=== PATIENT | female | born 1935 | race African-American/Black ===

== ENCOUNTER 2022-06-29 11:59 | Emergency (ER) | payer MEDICARE, SELFPAY ==
[2022-06-29] VITALS (20 sets, daily range): BP systolic 179–214; BP diastolic 62–73; PULSE 55–84; RESP 15–30; TEMP 36.3; O2SAT 94–100
--- NOTE | ~2022-06-29 | CT_ITS ---
EXAMINATION: CTA chest PE protocol DATE: 06/29/2022 16:17 INDICATION: Shortness of breath TECHNIQUE: Computed tomography angiography (CTA) of the chest was performed with 100 mL Omnipaque-350 intravenous contrast timed to evaluate the pulmonary arteries. Coronal maximum intensity projection 3D-reconstructions were created by the technologist. The dose-length product (DLP) was 552.20 mGy-cm. Automated exposure control and iterative reconstruction technique were employed. COMPARISON: None. FINDINGS: The pulmonary arteries are well-opacified. No pulmonary embolism is identified. There are s mall pleural effusions, right greater than left. There is dependent atelectasis. No pneumothorax is i dentified. Cardiomegaly is noted. There are are mildly enlarged mediastinal lymph nodes, likely react miko. There is severe thoracic spondylosis. Cysts of the partially visualized right kidney measure up to 4.1 cm. The gallbladder is surgically absent. IMPRESSION: 1. No pulmonary embolus. 2. Small pleural effusions, right greater than left. 3. Cardiomegaly. 4. Mild atelectasis. Reviewed, dictated and finalized at location A.
--- NOTE | ~2022-06-29 | XR_ITS ---
XR chest 2V 06/29/2022 12:54 Indication: Shortness of breath. History of asthma. Procedure: 2 view chest Comparison: No prior studies for comparison. Findings: Cardiomegaly. There is bibasilar airspace disease which may represent atelectasis and/or pn eumonia. Small pleural effusions. No acute osseous abnormality. There is atherosclerosis of the aorta . Impression: 1: Bibasilar airspace disease may represent atelectasis and/or pneumonia. 2: Cardiomegaly. Reviewed, dictated and finalized at location B. Impression: 1: Bibasilar airspace disease may represent atelectasis and/or pneumonia. 2: Cardiomegaly.
--- NOTE | 2022-06-29 12:09 | ECG_ITS ---
Measurements Intervals [place] Rate: 61 P: 61 NE: 142 QRS: -9 QRSD: 129 T: 121 QT: 428 QTc: 433 Interpretive Statements SINUS RHYTHM ATRIAL PREMATURE COMPLEXES LEFT BUNDLE BRANCH BLOCK ABNORMAL ECG NO PREVIOUS ECG AVAILABLE FOR COMPARISON Electronically Signed On 06-29-2022 13:32:58 CDT by Dougie Millard D.O.
--- NOTE | 2022-06-29 12:42 | ED.SOB ---
HPI - SOB/Dyspnea General Chief Complaint: Shortness of Breath/Dyspnea Stated Complaint: sob, not eating Time Seen by Provider: 06/29/22 12:40 Source: family and RN notes reviewed Mode of arrival: ambulatory Limitations: no limitations History of Present Illness HPI Narrative: 86 years old -Sudanese female brought to the emergency room by private car with her daughter complaining of shortness of breath for the last 7 days. Patient lives with her daughter. She denies any fever, chills, nausea, vomiting, diarrhea, constipation, or chest pain. History of asthma, diabetes, hypertension, CHF, dementia. Patient does not take oxygen at home, currently on Plavix. History of right foot surgery 2 months ago. Patient normally goes to [facility] Later patient's granddaughter came to the emergency room and told me that patient used to be on Lasix probably 60 mg daily patient did not take it since, unknown reason. Review of Systems Review of Systems: All systems reviewed & are unremarkable except as noted in HPI and below Exam Narrative: General appearance: Well-developed, well-nourished Skin: Normal color, trace edema bilaterally of the lower extremities Head: Normocephalic, nontraumatic Eyes: Clear conjunctiva ENT: Oropharynx normal, ears normal, nose normal Neck: Supple, nontender Chest and respiratory: Airway patent, no respiratory distress, no accessory muscle use Heart: Regular rate/rhythm Abdomen: Soft, nontender, no organomegaly, quiet bowel sounds Vascular: Normal peripheral pulses, normal capillary refill. Musculoskeletal: Normal range of motion, nontender back Neurologic: Alert and oriented to her name only Course Reevaluation(s) Reevaluation #1: Patient feeling okay as long as laying down in bed. The daughter and granddaughter declined the possibility of hospitalization and would like to take patient home with a prescription of Lasix. Patient blood pressure is elevated, did not take her medication today. Lasix 80 mg IV, Nitropaste 1 g topically used prior to discharge. Date: 06/29/22 Time: 17:20 Vital Signs Vital signs: Vital Signs Temperature 36.3 C L 06/29/22 12:05 Pulse Rate 72 06/29/22 12:05 Respiratory Rate 18 06/29/22 12:05 Blood Pressure 189/62 H 06/29/22 12:05 Pulse Oximetry 98 06/29/22 12:05 Temperature 36.3 C L 06/29/22 12:05 Pulse Rate 84 06/29/22 16:45 Respiratory Rate 26 H 06/29/22 16:45 Blood Pressure 179/73 H 06/29/22 16:24 Pulse Oximetry 100 06/29/22 16:45 MDM - SOB/Dyspnea Differential Diagnosis Differential diagnosis: Likely acute exacerbation of chronic obstructive airways disease, congestive heart failure, community acquired pneumonia and pulmonary embolism Lab Data Result diagrams: 06/29/22 12:23 Labs: Lab Results 06/29/22 06/29/22 06/29/22 Range/Units 12:23 12:23 13:31 WBC 7.2 (4.5-10.0) K/mm3 RBC 4.46 (4.2-5.4) M/mm3 Hgb 12.7 (12.0-15.0) g/dL Hct 41.2 (37.0-47.0) % MCV 92.4 (80-100) fl MCH 28.5 (26-34) pg MCHC 30.8 L (32-36) g/dl RDW 14.8 H (11.5-14.5) % Plt Count 248 (150-375) k/mm3 MPV 12.6 H (7.4-10.4) fl Immature Gran % (Auto) 0.3 (0-0.5) % Neut % (Auto) 49.1 (45.5-73.1) % Lymph % (Auto) 37.8 (18.3-44.2) % [place] % (Auto) 6.5 (2.6-8.5) % Eos % (Auto) 5.7 H (0-4.4) % Baso % (Auto) 0.6 (0.2-1.2) % Lymph # (Auto) 2.74 (0.9-3.2) K/mm3 [place] # (Auto) 0.5 (0.1-0.6) K/mm3 Eos # (Auto) 0.4 H (0-0.3) K/mm3 Baso # (Auto) 0.0 (0.0-0.1) K/mm3 Abs Immat Gran (auto) 0.02 (0.00-0.031) K/mm3 Absolute Neuts (auto) 3.6 (1.3-6.7) K/mm3 Absolute Nuclea
[2022-06-29 13:20] LABS: Alanine Aminotransferase 12 U/L (6-35); Albumin Level 3.5 g/dL (3.5-5.1); Alkaline Phosphatase 78 U/L (38-126); Anion Gap 12 mmol/L (8-16); Aspartate Amino Transferase 23 U/L (14-36); Bilirubin,Total 0.8 mg/dL (0.2-1.3); Blood Urea Nitrogen 12 mg/dL (7-17); Carbon Dioxide 25 mmol/L (22-30); Chloride 106 mmol/L (98-107); Estimated Glomerular Filt Rate 47; Glucose 93 mg/dL (65-110); Potassium 4.5 mmol/L (3.4-5.0); Sodium 143 mmol/L (137-145)
[2022-06-29 13:21] LABS: Basophils Percent Auto 0.6 % (0.2-1.2); Eosinophils Absolute Auto 0.4 K/mm3 (0-0.3); Eosinophils Percent Auto 5.7 % (0-4.4); Hematocrit 41.2 % (37.0-47.0); Hemoglobin 12.7 g/dL (12.0-15.0); Immature Granulocyte Absolute 0.02 K/mm3 (0.00-0.031); Immature Granulocyte Percent A 0.3 % (0-0.5); Lymphocytes Absolute Auto 2.74 K/mm3 (0.9-3.2); Lymphocytes Percent Auto 37.8 % (18.3-44.2); Mean Corpuscular HGB Conc 30.8 g/dl (32-36); Mean Corpuscular Hemoglobin 28.5 pg (26-34); Mean Corpuscular Volume 92.4 fl (80-100); Mean Platelet Volume 12.6 fl (7.4-10.4); Monocytes Absolute Auto 0.5 K/mm3 (0.1-0.6); Monocytes Percent Auto 6.5 % (2.6-8.5); Neutrophils Absolute Auto 3.6 K/mm3 (1.3-6.7); Neutrophils Percent Auto 49.1 % (45.5-73.1); Platelet Count Result 248 k/mm3 (150-375); Red Blood Count 4.46 M/mm3 (4.2-5.4); Red Cell Distribution Width 14.8 % (11.5-14.5); White Blood Count 7.2 K/mm3 (4.5-10.0)
[2022-06-29 13:37] LABS: Base Excess ABG -0.9 mEq/l (+/-2.0); HCO3 ABG 23.3 mEq/l (22.0-26.0); Oxygen Saturation ABG 94.7 % (95.0-100.0); PCO2 ABG 37.4 mmHg (35.0-45.0); PO2 ABG 71.9 mmHg (80.0-100.0); pH ABG 7.413 (7.350-7.450)
[2022-06-29 13:38] LABS: NT Pro B Type Natriuretic Pept 6040 pg/mL (5-100); Troponin I 0.013 ng/mL (0.000-0.034)
[2022-06-29 13:38] LABS: Oxygen Content ABG 17.5 %vol (16.0-22.0); Total Hemoglobin 13.3 g/dL (12.0-18.0)
[2022-06-29 13:40] LABS: Oxyhemoglobin 93.2 % THb (90.0-100.0)
[2022-06-29 13:41] LABS: Device ROOM AIR; Modified Allen's Test Pass; PO2 FiO2 Ratio Arterial Blood 3.42 %; Site Drawn RIGHT RADIAL
[2022-06-29 13:44] LABS: INR 1.1; Prothrombin Time 14.1 Seconds (11.1-14.7)
[2022-06-29 13:45] LABS: Partial Thromboplastin Time 30.9 SECONDS (22.3-36.8)
[2022-06-29 13:59] LABS: D Dimer 1.89 ug/mL (<0.48)
[2022-06-29 15:01] LABS: SARS-CoV-2 RNA PCR Negative
[2022-06-29] MEDS: FUROSEMIDE INJ 100 MG/10 ML VIAL 80 MG IV PUSH (17:40)
[2022-06-29] MEDS: NITROGLYCERIN OINTMENT 1 INCH DOSE TRANSDERM (17:41)
--- NOTE | 2022-06-29 18:49 | PC.NURSE ---
Dr. Falk aware of patient hypertensive state. Dr. Falk informed family and database report writer that patient could be discharged in current hypertensive state as long as patient is going to go home and take her home medications. Family agreed and patient discharged by CAL Gallardo per Dr. Falk permission.
== END 2022-06-29 18:51 | disposition home or self-care (01) ==
PROVIDERS: General Practice; Emergency Provider Emergency Medicine; PCP Internal Medicine
DX: I11.0 Hypertensive heart disease with heart failure (principal); I50.9 Heart failure, unspecified; I10 Essential (primary) hypertension; R06.02 Shortness of breath; F03.90 Unspecified dementia, unspecified severity, without behavioral disturbance, psychotic disturbance, mood disturbance, and anxiety; E11.9 Type 2 diabetes mellitus without complications; J45.909 Unspecified asthma, uncomplicated; Z79.02 Long term (current) use of antithrombotics/antiplatelets; Z20.822 Contact with and (suspected) exposure to COVID-19
CPT/HCPCS: 36415; 36600; 71046; 71275; 82805; 85025; 85380; 85610; 85730; 93005; 96374; 99284; A9270; C9803; J1940; Q9967; U0003; U0005

== ENCOUNTER 2025-09-02 09:51 | Outpatient (CLI) | payer MEDICARE, SELFPAY ==
--- OUTSIDE RECORDS SUMMARY | 2025-07-30 07:00 | XMS_ITS ---
Author Organization [facility] Address [address] [facility] [address] [facility] [address] [place] [address] Care Team Providers Care Electric Range Preparer Name Role Phone John Churchill Unavailable [phone] Problems Problem Type SNOMED Code ICD Code Onset Dates Problem Status W/U Status Risk Notes Problem Diabetic renal disease (164825251) Type 2 diabetes mellitus with diabetic chronic kidney disease (E11.22) Active confirmed Encounters Encounter Location Date Provider Diagnosis [place] [facility] [address] [facility] [address] [place] [address] 07/30/2025 John Churchill Chronic kidney disea se, stage 3b N18.32 ; Essential hypertension I10 ; Type 2 diabetes mellitus with hyperglycemia E11.65 ; Heart failure, unspecified I50.9 ; Renal osteodystrophy N25.0 and 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.22 Assessments Encounter Date Diagnosis (ICD Code) Assessment Notes Treatment Notes Treatment Clinical Notes Section Notes 07/30/2025 Chronic kidney disease, stage 3b (ICD-10 - N18.32) 07/30/2025 Essential hypertension (ICD-10 - I10) 07/30/2025 Type 2 diabetes mellitus with hyperglycemia (ICD-10 - E11.65) 07/30/2025 Heart failure, unspecified (ICD-10 - I50.9) 07/30/2025 Renal osteodystrophy (ICD-10 - N25.0) 07/30/2025 Type 2 diabetes mellitus with diabetic chronic kidney disease (ICD-10 - E11.22) Plan Of Treatment Next Appt Details Provider Name:John Zhao , 11/19/2025 01:00:00 PM, [address] [facility], [facility] [address], [place], [address], Progress Notes * NAHUN YODERDOB:1935 ( 89 yo F)Acc No.[id number]:07/30/2025 Progress Notes Patient: C OX, NAHUN Provider: Rivas PIERRE MD, F.Mina.Leila.P, F.A.S.N. :1935 A ge:89 Y S ex:Female Date:07/30/2025 Address:[address] [place] [address] Subjective: * Chief Complaints: * * Medical History: Objective: * Vitals: Assessment: * Assessment: 1. C hronic kidney disease, stage 3b - N18.32 (Primary) 2 . E ssential hypertension - I10 3 . T ype 2 diabetes mellitus with hyperglycemia - E11.65 ? 4 . H eart failure, unspecified - I50.9 5 . R enal osteodystrophy - N25.0 6 . T ype 2 diabetes mellitus with diabetic chronic kidney disease - E11.22 Plan: * Treatment: * Billing Information: * Visit Code: 52097 Office Visit, New Pt., Level 5. * Procedure Codes: * Electronic signature of Massiel Churchill MD on 09/02/2025 at 10:48 AM COPPER TAPPER Sign off status: Pending * Provider: Rivas PIERRE MD, F.Mina.Leila.P, F.A.S.N. Date: Generated for Printing/Faxing/eTransmitting on: 11/03/2024 10:48 AM COPPER TAPPER
--- OUTSIDE RECORDS SUMMARY | 2025-08-11 12:45 | XMS_ITS ---
Author Organization [facility] Address [address] [facility] [address] [facility] [address] [place] [address] Care Team Providers Care Dray Driver Name Role Phone John Churchill Unavailable [phone] REASON FOR VISIT R/S 09/01 Encounters Encounter Location Date Provider Diagnosis [place] [facility] [address] [facility] [address] [place] [address] 08/11/2025 John Churchill Plan Of Treatment Next Appt Details Provider Name:John Churchill , 11/19/2025 01:00:00 PM, [address] [facility], [facility] [address], [place], [address], Progress Notes * NAHUN YODERDOB:1935 ( 89 yo F)Acc No.[id number]:08/11/2025 Progress Notes Patient: NAHUN GRUBER Provider: Rivas PIERRE MD, Soledad.Mina.C.P, F.A.S.N. :1935 A ge:89 Y S ex:Female Date:08/11/2025 Address:[address] [place] [address] Subjective: * Chief Complaints: Objective: Assessment: Plan: * Billing Information: * Visit Code: * Procedure Codes: * Electronic signature of Massiel Churchill MD on 09/02/2025 at 10:48 AM CARD READER Sign off status: Pending * Provider: Rivas PIERRE MD, Soledad.Mina.C.P, F.A.S.N. Date: 10/11/2024 Generated for Printing/Faxing/eTransmitting on: 11/03/2024 10:48 AM CARD READER
--- OUTSIDE RECORDS SUMMARY | 2025-09-01 08:30 | XMS_ITS ---
Author Organization [facility] Address [address] [facility] [address] [facility] [address] [place] [address] Care Team Providers Care Evp Business Development Name Role Phone John Churchill Unavailable [phone] Problems Problem Type SNOMED Code ICD Code Onset Dates Problem Status W/U Status Risk Notes Problem Proteinuria (46415498) Proteinuria, unspecified (R80.9) Active confirmed Problem Osteoarthritis (408746748) Unspecified osteoarthritis, unspecified site (M19.90) Active confirmed Problem Gout (51012473) Gout, unspecified (M10.9) Active confirmed Problem Hyperkalemia (96506592) Hyperkalemia (E87.5) Active confirmed Problem Urinary tract infectious disease (disorder) (87830527) Urinary tract infection, site not specified (N39.0) Active confirmed Encounters Encounter Location Date Provider Diagnosis [place] [facility] [address] [facility] [address] [place] [address] 09/01/2025 John Churchill Chronic kidney disea se, stage 3b N18.32 ; Essential hypertension I10 ; Heart failure, unspecified I50.9 ; Renal osteodystrophy N25.0 ; 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.22 ; Proteinuria, unspecified R80.9 ; Unspecified osteoarthritis, unspecified site M19.90 ; Gout, unspecified M10.9 ; Hyperkalemia E87.5 and Urinary tract infection, site not specified N39.0 Assessments Encounter Date Diagnosis (ICD Code) Assessment Notes Treatment Notes Treatment Clinical Notes Section Notes 09/01/2025 Chronic kidney disease, stage 3b (ICD-10 - N18.32) 09/01/2025 Essential hypertension (ICD-10 - I10) 09/01/2025 Heart failure, unspecified (ICD-10 - I50.9) 09/01/2025 Renal osteodystrophy (ICD-10 - N25.0) 09/01/2025 Type 2 diabetes mellitus with diabetic chronic kidney disease (ICD-10 - E11.22) 09/01/2025 Proteinuria, unspecified (ICD-10 - R80.9) 09/01/2025 Unspecified osteoarthritis, unspecified site (ICD-10 - M19.90) 09/01/2025 Gout, unspecified (ICD-10 - M10.9) 09/01/2025 Hyperkalemia (ICD-10 - E87.5) 09/01/2025 Urinary tract infection, site not specified (ICD-10 - N39.0) Plan Of Treatment Next Appt Details Provider Name:John Zhao , 11/19/2025 01:00:00 PM, [address] [facility], [facility] [address], [place], [address], Progress Notes * BEBA LARADIONNADOB:1935 ( 89 yo F)Acc No.[id number]:09/01/2025 Progress Notes Patient: NAHUN GRUBER Provider: Rivas PIERRE MD, F.A.C.P, F.A.S.N. :1935 A ge:89 Y S ex:Female Date:09/01/2025 Address:[address] [place], [place] [id number] Subjective: * Chief Complaints: Objective: Assessment: * Assessment: 1. C hronic kidney disease, stage 3b - N18.32 (Primary) 2 . E ssential hypertension - I10 3 . H eart failure, unspecified - I50.9 4 . R enal osteodystrophy - N25.0 5 . T ype 2 diabetes mellitus with diabetic chronic kidney disease - E11.22 6 . P roteinuria, unspecified - R80.9 7 . U nspecified osteoarthritis, unspecified site - M19.90 8 . G out, unspecified - M10.9 9 . H yperkalemia - E87.5 1 0. U rinary tract infection, site not specified - N39.0 Plan: * Billing Information: * Visit Code: 89250 Office Visit, Est Pt., Level 4. * Procedure Codes: * Electronic signature of Massiel Churchill MD on 09/02/2025 at 10:48 AM MUD GRINDER Sign off status: Pending * Provider: Rivas PIERRE MD, F.A.C.P, F.A.S.N. Date: 11/02/2024 Generated for Printing/Faxing/eTransmitting on: 11/03/2024 10:48 AM MUD GRINDER
--- NOTE | ~2025-09-02 | NM_ITS ---
EXAMINATION: NM bone scan whole body DATE: 09/02/2025 14:07 INDICATION: Right hip pain TECHNIQUE: 24.0 mCi Tc-99m MDP was administered intravenously. Delayed whole- body scintigrams were obtained. COMPARISON: There are no relevant imaging studies at our institution. FINDINGS: Photopenic defect in the region of the right femoral head suggesting either prior right hip arthroplasty or osteonecrosis. Likely degenerative joint and uptake at the left wrist and acromioclavicular, elbow and knee joints. No other suspicious foci of abnormal bone uptake to suggest acute osseous abnormality or metastatic disease. Mild thoracic dextrocurvature with mild compensatory levocurvature at the thoracolumbar junction. IMPRESSION: 1. Photopenic defect in the region of the right femoral head which could be seen with either arthroplasty or osteonecrosis. Correlate with clinical history and consider radiographs of the right hip and pelvis for further evaluation. Reviewed, dictated and finalized at location A. PATIONAL HEALTH NURSE SUPERVISOR IMPRESSION: 1. Photopenic defect in the region of the right femoral head which could be see n with either arthroplasty or osteonecrosis. Correlate with clinical history an d consider radiographs of the right hip and pelvis for further evaluation.
--- OUTSIDE RECORDS SUMMARY | 2025-09-02 10:49 | XMS_ITS | Clinical Summary ---
Author Organization [facility] Address [address] [place] [address] Care Team Providers Care Mining Professionals Name Role Phone Bandar Macias MD Primary Care Provider [phone] Social History Tobacco Use Types Packs/Day Years Used Date Smoking Tobacco: Never Assessed Comments Unknown Sex and Gender Information Value Date Recorded Sex Assigned at Female 01/11/2025 10:31 AM CDT Legal Sex Female 2:13 PM CDT Gender Identity Not on file Sexual Orientation Not on file Plan of Treatment Health Maintenance Due Date Last Done Comments DTaP, Tdap and Td Vaccines ( 1 - Tdap) 12/02/1954 Pneumococcal Vaccine: 50+ Years (1 of 1 - PCV) 12/02/1985 Zoster Vaccines (1 of 2) 12/02/1985 Annual Medicare Wellness Visit 12/02/2000 RSV Immunization or 60+ Years (1 - 1-dose 75+ series) 12/02/2010 COVID-19 Vaccine (2024-2 6 season) 2025 08/02/2021, 12/19/2020, 11/21/2020 Influenza Adult (#1) 2025 09/17/2023 Hepatitis A Vaccines Aged Out No long er eligible based on patient's age to complete this topic Meningococcal B Vaccine Aged Out No l onger eligible based on patient's age to complete this topic Meningococcal Vaccine Aged Out No javi nara eligible based on patient's age to complete this topic RSV Immunizations Under 20 Months Aged Out No longer eligible b ased on patient's age to complete this topic Insurance [facility] MEDICARE Care Teams Mining Professionals Relationship Specialty Start Date End Date Bandar Macias MD [address] [place] [address] PCP - General INTERNAL MEDICINE 01/13/25
--- OUTSIDE RECORDS SUMMARY | 2025-09-02 10:49 | XMS_ITS | Clinical Summary ---
Author Organization [facility] [employer] Address [address] [facility] [place] [address] Care Team Providers Care Group Leader Semiconductor Processing Name Role Phone Noe De La Cruz MD Primary Care Provider Delia lazo Source Comments [facility] [employer],non-owned Affiliates and Associated Physician Practices is amultiple site organization consisting of ambulatory clinics and hospital sitesin [place], [place], [place] and [place]. This disclosure is being madepursuant to the Care Everywhere program and may not contain all information available regarding this patient. Last updated 18.[facility] [employer] Allergies Active Allergy Reactions Criticality Noted Date Comments Codeine Rash,Itching Medium 05/22/2010 Pt reports no adverse reaction to morphine... Pt has taken morphine before per nurse Erythromycin Rash,Itching Medium 05/22/2010 Medications * Be aware that medications may not be up to date on this document. Alwaysverify current medications with the patient. ALENDRONATE SODIUM PO Take 70 mg by mouth every 7 days. 06/09/2010 Active Escitalopram Oxalate (LEXAPRO PO) Take 10 mg by mouth daily. 06/09/2010 Active SitaGLIPtin-MetF ORMIN HCl (JANUMET PO) Take 50 mg by mouth daily. 06/09/2010 Active Calcium Carbonate-Vitami n D (CALCIUM 500 + D PO) Take 500 mg by mouth daily. 06/09/2010 Active METFORMIN HCL PO Take 1,000 mg by mouth daily with dinner. 06/09/2010 Active Carvedilol, [id number], (CARVEDILOL PO) Take 3.125 mg by mouth 2 times daily. 06/09/2010 Active Atorvastatin Calcium (LIPITOR PO) Take 40 mg by mouth daily. 06/09/2010 Active Montelukast Sodium (SINGULAIR PO) Activ e Olmesartan Medoxomil (BENICAR PO) Take 40 mg by mouth daily. 40-25 mg 06/09/2010 Active ASPIRIN PO Take 325 mg by mouth daily. 06/09/2010 Active Propoxyphene N-APAP (DARVOCET-N 100 PO) Take 100 mg by mouth 3 times daily. 06/09/2010 Active tramadol (ULTRAM) 50 MG tablet Take 50 mg by mouth every 6 hours as needed. Active methocarbamol (ROBAXIN) 500 MG tablet Take 1 Tab by mouth every 8 hours. 40 Tab 1 06/09/2010 Active propoxyphene napsylate-acetam inophen (DARVOCET-N 100) 100-650 MG tablet Take 1 Tab by mouth every 4 hours as needed for Pain. 40 Tab 1 06/09/2010 Active hydrocodone-acet aminophen (VICODIN) 5-500 MG tablet Take 1-2 Tabs by mouth every 6 hours as needed for Pain. 40 Tab 1 06/26/2010 Active Active Problems Problem Noted Date Diagnosed Date Muscle weakness (generalized) 09/06/2010 Status post cervical spinal fusion 06/26/2010 Cervical spondylosis without myelopathy 06/26/20 10 Resolved Problems Problem Noted Date Diagnosed Date Resolved Date Cervical spondylosis 06/09/2010 010 Cervical spondylosis without myelopathy 05/22/2010 06/09/2010 Social History Tobacco Use Types Packs/Day Years Used Date Smoking Tobacco: Former Cigarettes 0 Q uit: 05/31/1971 Alcohol Use Standard Drinks/Week Comments No 0 (1 standard drink = 0.6 oz pur e alcohol) Comments Unknown Sex and Gender Information Value Date Recorded Sex Assigned at Not on file Legal Sex Female 9:13 AM AUTOMOTIVE COLLISION REPAIR INSTRUCTOR Gender Identity Not on file Sexual Orientation Not on file Last Filed Vital Signs Vital Sign Reading Time Taken Comments Blood Pressure 141/63 06/10/2010 7:52 AM CDT Pulse 81 06/10/2010 7:52 AM CDT Temperature 35.8 C (96.5 F) 06/10/2010 7:52 AM CDT Respiratory Rate 20 06/10/2010 7:52 AM CDT Oxygen Saturation 93% 06/10/2010 7:52 AM CDT Inhaled Oxygen Concentration - - Weight 83 kg (183 lb) 06/09/2010 7:52 AM CDT Height 167.6 cm (5' 6) 06/09/2010 7:52 AM CDT Body Mass Index 29.54 06/09/2010 7:52 AM CDT Plan of Treatment Health Maintenance Due Date Last Done Comments BONE DENSITY TESTING 1935 DTAP/TDAP/TD VACCINES (1 - Tdap) 12/02/1954 PNEUMOCOCCAL VACCINE 50+ (1 of 1 - PCV) 12/02/1985 ZOSTER VACCINE (1 of 2) 12/02/1985 Respiratory Syncytial Virus (RSV) Vaccine Pt: or over 60 yrs (1 - 1-dose 75+ series) 12/02/2010 DEPRESSION SCREENING 09/30/2024 COVID-19 VACCINE (2024-2 6 season) 2025 INFLUENZA VACCINE (#1) 2025 HEPATITIS B VACCINE Aged Out No longe r eligible based on patient's age to complete this topic HIB VACCINE Aged Out No longer eligi ble based on patient's age to complete this topic HPV VACCINE Aged Out No longer eligi ble based on patient's age to complete this topic MENINGOCOCCAL (Group B) VACC INE SHARED DECISION-MAKING Aged Out No longer eligibl e based on patient's age to complete this topic MENINGOCOCCAL GROUPS A/C/Y/W VACCINE Aged Out No longer eligible b ased on patient's age to complete this topic Advance Directives * Full Code (Latest Code Status on File) Date Activated Date Inactivated Comments 06/09/2010 2:14 PM 06/11/2010 1:58 AM Care Teams Group Leader Semiconductor Processing Relationship Specialty Start Date End Date Noe De La Cruz MD PCP - General Internal Medicine 09/06/10
--- OUTSIDE RECORDS SUMMARY | 2025-09-02 10:49 | XMS_ITS | Clinical Summary ---
Author Organization [employer] [facility] Address [address] Humphriesn: Epic Prelude ADT [place] [address] Care Team Providers Care Emt Basic Name Role Phone Unavailable Primary Care Provider Unavailabl e Social History Tobacco Use Types Packs/Day Years Used Date Smoking Tobacco: Never Assessed Comments Unknown Sex and Gender Information Value Date Recorded Sex Assigned at Not on file Legal Sex Female 11:32 AM SOFTWARE TESTING SPECIALIST Gender Identity Not on file Sexual Orientation Not on file Plan of Treatment Health Maintenance Due Date Last Done Comments DTAP/TDAP/TD VACCINES (1 - Tdap) 12/02/1954 PNEUMOCOCCAL VACCINE 50+ YEARS (1 of 1 - PCV) 12/02/18 86 ZOSTER VACCINE (1 of 2) 12/02/1985 OSTEOPOROSIS SCREENING 12/02/2000 RSV VACCINE (60+ or ) (1 - 1-dose 75+ series) 12/02/2010 INFLUENZA VACCINE (#1) 2025
--- OUTSIDE RECORDS SUMMARY | 2025-09-02 10:49 | XMS_ITS | Patient Health Record ---
Author Organization [facility] Address [address] [facility] [address] [place] [address] Care Team Providers Care Plaster Die Maker Name Role Phone John Churchill Unavailable [phone] Reason For Referral No Information Problems Problem Type SNOMED Code ICD Code Onset Dates Problem Status W/U Status Risk Notes Problem Diabetic renal disease (420946849) Type 2 diabetes mellitus with diabetic chronic kidney disease (E11.22) Active confirmed Problem Hyperkalemia (35153591) Hyperkalemia (E87.5) Active confirmed Problem Heart failure (68337260) Heart failure, unspecified (I50.9) Active confirmed Problem Gout (81971335) Gout, unspecifie d (M10.9) Active confirmed Problem Osteoarthritis (437129310) Unspecified osteoarthritis, unspecified site (M19.90) Active confirmed Problem Renal osteodystrophy (85685147) Renal osteodystrophy (N25.0) Active confirmed Problem Urinary tract infectious disease (disorder) (23583302) Urinary tract infection, site not specified (N39.0) Active confirmed Problem Proteinuria (78078780) Proteinuria, unspecified (R80.9) Active confirmed Problem Essential hypertension (64663005) Essential hypertension (I10) Active confirmed Problem Chronic kidney disease stage 3B (disorder) (294993432) Chronic kidney disease, stage 3b (N18.32) Active confirmed Encounters Encounter Location Date Provider Diagnosis [facility] [address] [facility] [address] [place] [address] 07/30/2025 John Churchill Chronic kidney disea se, stage 3b N18.32 ; Essential hypertension I10 ; Type 2 diabetes mellitus with hyperglycemia E11.65 ; Heart failure, unspecified I50.9 ; Renal osteodystrophy N25.0 and 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.22 [facility] [address] [facility] [address] [place] [address] 09/01/2025 John Churchill Chronic kidney disea se, [...] disease, stage 3b (ICD-10 - N18.32) 09/01/2025 Chronic kidney disease, stage 3b (ICD-10 - N18.32) 09/01/2025 Essential hypertension (ICD-10 - I10) 07/30/2025 Essential hypertension (ICD-10 - I10) 09/01/2025 Heart failure, unspecified (ICD-10 - I50.9) 07/30/2025 Type 2 diabetes mellitus with hyperglycemia (ICD-10 - E11.65) 07/30/2025 Heart failure, unspecified (ICD-10 - I50.9) 09/01/2025 Renal osteodystrophy (ICD-10 - N25.0) 07/30/2025 Renal osteodystrophy (ICD-10 - N25.0) 09/01/2025 Type 2 diabetes mellitus with diabetic chronic kidney disease (ICD-10 - E11.22) 07/30/2025 Type 2 diabetes mellitus with diabetic chronic kidney disease (ICD-10 - E11.22) 09/01/2025 Proteinuria, unspecified (ICD-10 - R80.9) 09/01/2025 Unspecified osteoarthritis, unspecified site (ICD-10 - M19.90) 09/01/2025 Gout, unspecified (ICD-10 - M10.9) 09/01/2025 Hyperkalemia (ICD-10 - E87.5) 09/01/2025 Urinary tract infection, site not specified (ICD-10 - N39.0) Plan Of Treatment Next Appt Details Provider Name:John Singh , 11/19/2025 01:00:00 PM, [address], [place], [address],
--- OUTSIDE RECORDS SUMMARY | 2025-09-02 10:49 | XMS_ITS | Clinical Summary ---
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 Pt has taken morphine before per nurse Erythromycin Itching,Rash Medium 05/22/2010 Erythromycin Base Unknown 06/19/2023 Medications isosorbide mononitrate ER (IMDUR) 30 mg 24 hr tablet Take 1 tablet (30 mg total) by mouth daily Active dicyclomine (BENTYL) 20 mg tablet Take 1 tablet (20 mg total) by mouth 2 (two) times a day as needed (abdominal cramping) Active furosemide (LASIX) 40 mg tablet Take 1 tablet (40 mg total) by mouth daily Active olmesartan (BENICAR) 20 mg tablet Take 1 tablet (20 mg total) by mouth daily Active acetaminophen (TYLENOL) 325 mg tablet Take 650 mg by mouth every 6 (six) hours as needed for pain Active atorvastatin (LIPITOR) 40 mg tablet Take 1 tablet (40 mg total) by mouth daily Active carvediloL (COREG) 12.5 mg tablet Take 1 tablet (12.5 mg total) by mouth 2 (two) times a day with meals Active clopidogreL (PLAVIX) 75 mg tablet Take 1 tablet (75 mg total) by mouth daily Active mirtazapine (REMERON) 7.5 mg tablet Take 1 tablet (7.5 mg total) by mouth nightly Active albuterol HFA (PROVENTIL HFA,VENTOLIN HFA,PROAIR HFA) 90 mcg/actuation inhaler Inhale 2 puffs every 6 (six) hours as needed for wheezing Active ferrous sulfate 325 mg (65 mg of elemental iron) tablet Take 1 tablet (65 mg of elemental iron total) by mouth daily with breakfast Active ezetimibe (ZETIA) 10 mg tablet Take 1 tablet (10 mg total) by mouth daily Active megestrol (MEGACE) suspension 400 mg/10 mL Take 10 mL (400 mg total) by mouth daily Shake well just before you measure a dose. Measure with a special dose-measuring spoon or medicine cup, not with a regular table spoon. If you do not have a dose-measuring device, ask your pharmacist for one. 5 Active methocarbamoL (ROBAXIN) 500 mg tablet Take 1 tablet (500 mg total) by mouth every 8 (eight) hours as needed for muscle spasms 30 tablet 5 Active budesonide-formo teroL (SYMBICORT) 160-4.5 mcg/actuation inhaler Inhale 2 puffs daily Rinse mouth with water after use. Do not swallow. 1 each 2 5 Active fluticasone propion-salmeter oL (ADVAIR DISKUS) 100-50 mcg/dose diskus inhaler Inhale 1 puff 2 (two) times a day as needed (For shortness of breath) Rinse mouth with water after use. Do not swallow. 1 each 2 5 Active Active Problems Problem Noted Date Diagnosed Date GREGG (obstructive sleep apnea) 08/10/2025 Simple chronic bronchitis 08/10/2025 Psychophysiological insomnia 08/10/2025 Restless legs 08/10/2025 Moderate persistent asthma without complication 08/10/2025 Wheelchair dependent 08/10/2025 Chronic diastolic heart failure 07/14/2025 Acute on chronic heart failu re with preserved ejection fraction (HFpEF) 06/20/2025 Assessment & Plan (06/21/2025 7:25 AM CDT): -Patient's daughter reports that her mother has been experiencing SOB, especially at night waking up to catch her breath (orthopnea?). This was happening even prior to her recent admission. Patient is not in respiratory distress and is on RA. No signs of volume overload. Workup in the ED: hypersensitivity troponin 13 > 12, NT proBNP 1999 (previously 939 two weeks ago), RPP negative. CXR revealed bibasilar streaky opacities, likely atelectasis. EKG was largely unchanged from prior. She received IV Lasix 40 mg x 2. Recent CT chest 06/04/2025 with no significant findings in the lungs. Unclear if there is a component of HF; however, patient is not volume overloaded on exam. No wheezing to suggest COPD. - Telemetry :I have independently reviewed and interpreted telemetry, which showed 2 episodes of desaturations nightly. - Daughters declined sleep medicine referral, given patient's GOC (unlikely to wear CPAP or nightly oxygen). Plan: - Tele and continuous pulse ox, monitor for any nocturnal desaturations/breathing issues - Echo 82% EF, GIDD, mild RV hypokinesis - Daughters' declined Sleep Medicine referral - continue home coreg, imdur - lasix held given CHAPARRITA Assessment & Plan (06/20/2025 10:34 AM CDT): -Patient's daughter reports that her mother has been experiencing SOB, especially at night waking up to catch her breath (orthopnea?). This was happening even prior to her recent admission. Patient is not in respiratory distress and is on RA. No signs of volume overload. Workup in the ED: hypersensitivity troponin 13 > 12, NT proBNP 1999 (previously 939 two weeks ago), RPP negative. CXR revealed bibasilar streaky opacities, likely atelectasis. EKG was largely unchanged from prior. She received IV Lasix 40 mg x 2. Recent CT chest 06/04/2025 with no significant findings in the lungs. Unclear if there is a component of HF; however, patient is not volume overloaded on exam. No wheezing to suggest COPD. - Telemetry :I have independently reviewed and interpreted telemetry, which showed 2 episodes of desaturations nightly. - Daughters declined sleep medicine referral, given patient's GOC (unlikely to wear CPAP or nightly oxygen). Plan: - Tele and continuous pulse ox, monitor for any nocturnal desaturations/breathing issues - Echo 82% EF, GIDD, mild RV hypokinesis - Daughters' declined Sleep Medicine referral - continue home coreg, imdur - lasix held given CHAPARRITA Leukocytosis 06/20/2025 Assessment & Plan (06/21/2025 7:25 AM CDT): Admit WBC 12.5. Patient denies any pain or discomfort, but hx limited by mental status. - UA w/ reflex ordered Assessment & Plan (06/20/2025 10:35 AM CDT): Admit WBC 12.5. Patient denies any pain or discomfort, but hx limited by mental status. - UA w/ reflex ordered Poor appetite 06/19/2025 Assessment & Plan (06/21/2025 7:25 AM CDT): Daughter reports poor oral intake. On megrestol and mirtazapine at home. Likely 2/2 to dementia. - Nutrition consult - continue megestrol and mirtazapine Assessment & Plan (06/20/2025 7:24 AM CDT): Daughter reports poor oral intake. On megrestol and mirtazapine at home. Likely 2/2 to dementia. - Nutrition consult - continue megestrol and mirtazapine Assessment & Plan (06/19/2025 2:18 PM CDT): Daughter reports poor oral intake. On megrestol and mirtazapine at home. Likely 2/2 to dementia. - RD as elsewhere - continue home meds Generalized abdominal pain 06/19/2025 Assessment & Plan (06/21/2025 7:25 AM CDT): Patient complaint of abdominal pain. Exam with normal bowel sounds, soft, non-distended. KUB with normal bowel gas. - continue to monitor Assessment & Plan (06/20/2025 7:24 AM CDT): Patient complaint of abdominal pain. Exam with normal bowel sounds, soft, non-distended. KUB with normal bowel gas. - continue to monitor Assessment & Plan (06/19/2025 2:18 PM CDT): Patient complaint of abdominal pain. Exam with normal bowel sounds, soft, non-distended. KUB with normal bowel gas. - continue to monitor Hyperkalemia 06/18/2025 Assessment & Plan (06/21/2025 12:21 PM CDT): K 6.5> 5.3 after treatment. Likely due to olmesartan and potassium pills. Unclear if she has CHAPARRITA, Cr 1.8, however baseline fluctuates 1.3-1.7. 2 doses of Lokelma given over . Whole blood K within normal. Cr increase to 2.15. Patient having poor oral intake. - kidney ultrasound with no hydronephrosis - 1:1 feeds to encourage oral intake - lasix held - UA w/ reflex - Hold olmesartan and potassium - Low-potassium diet Assessment & Plan (06/20/2025 10:35 AM CDT): K 6.5> 5.3 after treatment. Likely due to olmesartan and potassium pills. Unclear if she has CHAPARRITA, Cr 1.8, however baseline fluctuates 1.3-1.7. 2 doses of Lokelma given over . Whole blood K within normal. Cr increase to 2.04. Patient having poor oral intake. - kidney ultrasound - 1:1 feeds to encourage oral intake - lasix held - UA w/ reflex - Hold olmesartan and potassium - Low-potassium diet Assessment & Plan (06/19/2025 2:18 PM CDT): K 6.5> 5.3 after treatment. Likely due to olmesartan and potassium pills. Unclear if she has CHAPARRITA, Cr 1.8, however baseline fluctuates 1.3-1.7. 2 doses of Lokelma given over . Whole blood K within normal. -Hold olmesartan and potassium -Low-potassium diet -Telemetry Assessment & Plan (06/18/2025 11:12 PM CDT): -K 6.5> 5.3 after treatment. Likely due to olmesartan and potassium pills. Unclear if she has CHAPARRITA, Cr 1.8, however baseline fluctuates 1.3-1.7 -Hold olmesartan and potassium -Low-potassium diet -Lokelma x1 -Tele Chronic kidney disease (CKD), stage 3 06/18/2025 Assessment & Plan (06/21/2025 12:21 PM CDT): K 6.5> 5.3 after treatment. Likely due to olmesartan and potassium pills. Unclear if she has CHAPARRITA, Cr 1.8, however baseline fluctuates 1.3-1.7. 2 doses of Lokelma given over . Whole blood K within normal. Cr increase to 2.15. Patient having poor oral intake. - kidney ultrasound with no hydronephrosis - 1:1 feeds to encourage oral intake - lasix held - UA w/ reflex - Hold olmesartan and potassium - Low-potassium diet Assessment & Plan (06/20/2025 10:35 AM CDT): K 6.5> 5.3 after treatment. Likely due to olmesartan and potassium pills. Unclear if she has CHAPARRITA, Cr 1.8, however baseline fluctuates 1.3-1.7. 2 doses of Lokelma given over . Whole blood K within normal. Cr increase to 2.04. Patient having poor oral intake. - kidney ultrasound - 1:1 feeds to encourage oral intake - lasix held - UA w/ reflex - Hold olmesartan and potassium - Low-potassium diet Assessment & Plan (06/19/2025 2:18 PM CDT): K 6.5> 5.3 after treatment. Likely due to olmesartan and potassium pills. Unclear if she has CHAPARRITA, Cr 1.8, however baseline fluctuates 1.3-1.7. 2 doses of Lokelma given over . Whole blood K within normal. -Hold olmesartan and potassium -Low-potassium diet -Telemetry Assessment & Plan (06/18/2025 11:12 PM CDT): -K 6.5> 5.3 after treatment. Likely due to olmesartan and potassium pills. Unclear if she has CHAPARRITA, Cr 1.8, however baseline fluctuates 1.3-1.7 -Hold olmesartan and potassium -Low-potassium diet -kelmn x1 -Tele SOB (shortness of breath) 06/18/2025 Assessment & Plan (06/21/2025 7:25 AM CDT): -Patient's daughter reports that her mother has been experiencing SOB, especially at night waking up to catch her breath (orthopnea?). This was happening even prior to her recent admission. Patient is not in respiratory distress and is on RA. No signs of volume overload. Workup in the ED: hypersensitivity troponin 13 > 12, NT proBNP 1999 (previously 939 two weeks ago), RPP negative. CXR revealed bibasilar streaky opacities, likely atelectasis. EKG was largely unchanged from prior. She received IV Lasix 40 mg x 2. Recent CT chest 06/04/2025 with no significant findings in the lungs. Unclear if there is a component of HF; however, patient is not volume overloaded on exam. No wheezing to suggest COPD. - Telemetry 06/19-:I have independently reviewed and interpreted telemetry, which showed 2 episodes of desaturations nightly. - Daughters declined sleep medicine referral, given patient's GOC (unlikely to wear CPAP or nightly oxygen). Plan: - Tele and continuous pulse ox, monitor for any nocturnal desaturations/breathing issues - Echo 82% EF, GIDD, mild RV hypokinesis - Daughters' declined Sleep Medicine referral - continue home coreg, imdur - lasix held given CHAPARRITA Assessment & Plan (06/20/2025 10:34 AM CDT): -Patient's daughter reports that her mother has been experiencing SOB, especially at night waking up to catch her breath (orthopnea?). This was happening even prior to her recent admission. Patient is not in respiratory distress and is on RA. No signs of volume overload. Workup in the ED: hypersensitivity troponin 13 > 12, NT proBNP 2000 (previously 939 two weeks ago), RPP negative. CXR revealed bibasilar streaky opacities, likely atelectasis. EKG was largely unchanged from prior. She received IV Lasix 40 mg x 2. Recent CT chest 06/04/2025 with no significant findings in the lungs. Unclear if there is a component of HF; however, patient is not volume overloaded on exam. No wheezing to suggest COPD. - Telemetry 06/19-:I have independently reviewed and interpreted telemetry, which showed 2 episodes of desaturations nightly. - Daughters declined sleep medicine referral, given patient's GOC (unlikely to wear CPAP or nightly oxygen). Plan: - Tele and continuous pulse ox, monitor for any nocturnal desaturations/breathing issues - Echo 82% EF, GIDD, mild RV hypokinesis - Daughters' declined Sleep Medicine referral - continue home coreg, imdur - lasix held given CHAPARRITA Assessment & Plan (06/19/2025 2:18 PM CDT): -Patient's daughter reports that her mother has been experiencing SOB, especially at night waking up to catch her breath (orthopnea?). This was happening even prior to her recent admission. Patient is not in respiratory distress and is on RA. No signs of volume overload. Workup in the ED: hypersensitivity troponin 13 > 12, NT proBNP 2000 (previously 939 two weeks ago), RPP negative. CXR revealed bibasilar streaky opacities, likely atelectasis. EKG was largely unchanged from prior. She received IV Lasix 40 mg x 2. Recent CT chest 06/04/2025 with no significant findings in the lungs. Unclear if there is a component of HF; however, patient is not volume overloaded on exam. No wheezing to suggest COPD. - Telemetry 06/19:I have independently reviewed and interpreted telemetry, which showed 2 episodes of desaturations around SpO2 80 around 0500. Plan: - Tele and continuous pulse ox, monitor for any nocturnal desaturations/breathing issues - Echo pending - Daughters' declined Sleep Medicine referral - Continue oral lasix 40 mg Assessment & Plan (06/18/2025 11:13 PM CDT): -Patient's daughter reports that her mother has been experiencing SOB, especially at night waking up to catch her breath (orthopnea?). This was happening even prior to her recent admission. Patient is not in respiratory distress and is on RA. No signs of volume overload. Workup in the ED: hypersensitivity troponin 13 > 12, NT proBNP 2000 (previously 939 two weeks ago), RPP negative. CXR revealed bibasilar streaky opacities, likely atelectasis. EKG was largely unchanged from prior. She received IV Lasix 40 mg x 2. Recent CT chest 06/04/2025 with no significant findings in the lungs. Unclear if there is a component of HF; however, patient is not volume overloaded on exam. No wheezing to suggest COPD. Plan: -Tele and continuous pulse ox, monitor for any nocturnal desaturations/breathing issues -Echo -Continue oral lasix 40 mg HTN (hypertension) 06/18/2025 Assessment & Plan (06/21/2025 7:25 AM CDT): Patient is hypertensive here (issues with high BP at home per daughter) on admission. BP improved in AM. -Continue carvedilol and Imdur -Hold olmesartan due to hyperkalemia. Will assess BP, may need to initiate amlodipine. Assessment & Plan (06/20/2025 7:24 AM CDT): Patient is hypertensive here (issues with high BP at home per daughter) on admission. BP improved in AM. -Continue carvedilol and Imdur -Hold olmesartan due to hyperkalemia. Will assess BP, may need to initiate amlodipine. Assessment & Plan (06/19/2025 2:18 PM CDT): Patient is hypertensive here (issues with high BP at home per daughter) on admission. BP improved in AM. -Continue carvedilol and Imdur -Hold olmesartan due to hyperkalemia. Will assess BP, may need to initiate amlodipine. Assessment & Plan (06/18/2025 11:12 PM CDT): -Patient is hypertensive here (issues with high BP at home per daughter) -Continue carvedilol and Imdur -Hold olmesartan due to hyperkalemia. Will assess BP, may need to initiate amlodipine. CAD (coronary artery disease) 06/18/2025 Assessment & Plan (06/21/2025 7:25 AM CDT): -Continue Plavix and statin Assessment & Plan (06/20/2025 7:24 AM CDT): -Continue Plavix and statin Assessment & Plan (06/19/2025 9:16 AM CDT): -Continue Plavix and statin Assessment & Plan (06/18/2025 11:12 PM CDT): -Continue Plavix and statin T2DM (type 2 diabetes mellitus) 06/18/2025 Assessment & Plan (06/21/2025 7:25 AM CDT): Not taking metformin per daughter, most recent A1c 6.3 in 04/2024. 06/18/2025 7.2. - SSI Assessment & Plan (06/20/2025 10:34 AM CDT): Not taking metformin per daughter, most recent A1c 6.3 in 04/2024. 06/18/2025 7.2. - SSI Assessment & Plan (06/19/2025 2:18 PM CDT): Not taking metformin per daughter, most recent A1c 6.3 in 04/2024 - Add on A1c ordered - SSI Assessment & Plan (06/18/2025 11:12 PM CDT): -Not taking metformin per daughter, most recent A1c 6.3 in 04/2024 -Add on A1c CHAPARRITA (acute kidney injury) 06/05/2025 Assessment & Plan (06/21/2025 12:21 PM CDT): K 6.5> 5.3 after treatment. Likely due to olmesartan and potassium pills. Unclear if she has CHAPARRITA, Cr 1.8, however baseline fluctuates 1.3-1.7. 2 doses of Lokelma given over 06/18-. Whole blood K within normal. Cr increase to 2.15. Patient having poor oral intake. - kidney ultrasound with no hydronephrosis - 1:1 feeds to encourage oral intake - lasix held - UA w/ reflex - Hold olmesartan and potassium - Low-potassium diet Assessment & Plan (06/20/2025 10:35 AM CDT): K 6.5> 5.3 after treatment. Likely due to olmesartan and potassium pills. Unclear if she has CHAPARRITA, Cr 1.8, however baseline fluctuates 1.3-1.7. 2 doses of Lokelma given over . Whole blood K within normal. Cr increase to 2.04. Patient having poor oral intake. - kidney ultrasound - 1:1 feeds to encourage oral intake - lasix held - UA w/ reflex - Hold olmesartan and potassium - Low-potassium diet Cystitis 06/05/2025 Weakness 06/04/2025 Surgery, elective 03/14/2021 Dementia 03/07/2021 Assessment & Plan (06/21/2025 7:25 AM CDT): -AAOx1 (to person) on admission. This is her baseline per daughter.Walks with walker. -PT/OT Assessment & Plan (06/20/2025 10:34 AM CDT): -AAOx1 (to person) on admission. This is her baseline per daughter.Walks with walker. -PT/OT Assessment & Plan (06/19/2025 9:16 AM CDT): -AAOx1 (to person) on admission. This is her baseline per daughter. -PT/OT/nutrition Assessment & Plan (06/18/2025 11:12 PM CDT): -AAOx1 (to person) on admission. This is her baseline per daughter. 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 Hypertension 03/07/2021 Hyperlipidemia 03/07/2021 Rheumatoid arthritis 03/07/2021 Resolved Problems Problem Noted Date Diagnosed Date Resolved Date Calculus of gallbladder with out cholecystitis without obstruction 03/02/2021 03/27/2021 Overview (03/02/2021): Added automatically from request for surgery [id number] Encounters Date Type Department Care Team Description 08/10/2025 3:55 PM COUNTERSINKER - 08/10/2025 11:59 PM COUNTERSINKER Hospital Encounter [facility] [address] [place] [address] GREGG (obstructive sleep apnea); Simple chronic bronchitis (HCC); Psychophysiological insomnia; Restless legs Discharge Disposition: Discharge to home or self care 08/10/2025 3:15 PM COUNTERSINKER Office Visit [facility] Pulmonology [address] [facility] [address] [place] [phone] Markus Webb MD GREGG (obstructive sleep apnea) (Primary Dx); Simple chronic bronchitis (HCC); Psychophysiological insomnia; Restless legs; Moderate persistent asthma without complication; Wheelchair dependent 07/14/2025 1:00 PM CDT Office Visit [facility] Cardiology [address] [phone] Regis Navarro MD Chronic diastolic heart failure (HCC) (Primary Dx) 07/07/2025 SHOP/CHAP Subsequent Outreach [facility] [address] [phone] Tennille Cunningham, RN 07/01/2025 SHOP/CHAP Subsequent Outreach [facility] [address] [phone] Tennille Cunningham, RN 06/25/2025 SHOP/CHAP Subsequent Outreach [facility] [address] [phone] Tennille Cunningham, RN 06/23/2025 Telephone [facility] [address] [place] [phone] Muna Thompson, [facility] 06/22/2025 SHOP/CHAP Initial Outreach [facility] [address] [phone] Tennille Cunningham RN 06/22/2025 SHOP/CHAP Initial Eligibility Review [facility] [address] [place] [phone] Tennille Cunningham RN 06/18/2025 12:25 PM CDT - 06/21/2025 4:10 PM CDT Hospital Encounter [address] [phone] Nicolas Espinosa MD Kapoor, MD Omar Velasquez Shannon Tyisha Natasha, MD Hyperkalemia (Primary Dx); Shortness of breath; CHAPARRITA (acute kidney injury); Failure to thrive in adult Discharge Disposition: Discharge to home or self care 06/04/2025 12:26 PM CDT - 06/09/2025 1:56 [place] [address] Basil Min, Oj Tamayo MD Bondalapati, MD Zelalem Son, Cade Hill MD Weakness (Primary Dx); Cystitis; CHAPARRITA (acute kidney injury) Discharge Disposition: Discharge to home, home health skilled care from Last 3 Months Surgical History Surgery Date Site/Laterality Comments ANGIOPLASTY TOTAL HIP ARTHROPLASTY Right ORIF ANKLE FRACTURE Left VASCULAR SURGERY Right Leg LAPAROSCOPIC CHOLECYSTECTOMY 03/14/2021 Cholelithiasis with moderate chronic cholecystitis Medical History Medical History Date Comments Hypertension Coronary artery disease Congestive heart failure (CHF) (HCC) Peripheral vascular disease Diabetes 1.5, managed as type 2 (HCC) Rheumatoid arthritis (HCC) 03/07/2021 Family History Medical History Relation Name Comments Ovarian cancer Mother Hypertension Son 1 Hypertension Son 2 Cholelithiasis Neg Hx Relation Name Status Comments Mother Son 1 Son 2 Social History Tobacco Use Types Packs/Day Years Used Date Smoking Tobacco: Former Smokeless Tobacco: Never Comments:Trivial use over 50 years ago AUDIT-C Answer Date Recorded Q1: How often do you have a drink containing alc ohol? Never 03/07/2021 Average Number of Drinks Not on file 021 Frequency of Binge Drinking Not on file 04/2021 Social Connection and Isolation Panel Answer Date Recorded In a typical week, how many times do you talk on the phone with family, friends, or neighbors? More than three times a week 06/22/2025 How often do you get togethe r with friends or relatives? More than three times a week 06/22/2025 How often do you attend chur ch or adventism services? Never 06/22/2025 Do you belong to any clubs o r organizations such as yazdanism groups, unions, fraternal or athletic groups, or school groups? No 06/22/2025 How often do you attend meet ings of the clubs or organizations you belong to? Never 06/22/2025 Are you , , di vorced, , never , or living with a partner? 06/22/2025 Overall Financial Resource Strain (CARDIA) Answe r Date Recorded How hard is it for you to pa y for the very basics like food, housing, medical care, and heating? Not very hard 06/22/2025 Hunger Vital Sign Answer Date Recorded Within the past 12 months, y ou worried that your food would run out before you got the money to buy more. Never true 06/22/20 25 Within the past 12 months, t he food you bought just didn't last and you didn't have money to get more. Never true 06/22/2025 PRAPARE - Transportation Answer Date Re corded In the past 12 months, has l ack of transportation kept you from medical appointments or from getting medications? No 06/01 In the past 12 months, has l ack of transportation kept you from meetings, work, or from getting things needed for daily living? No 06/22/2025 Housing Stability Vital Sign Answer Prashanth e Recorded In the last 12 months, was t here a time when you were not able to pay the mortgage or rent on time? No 06/22/2025 In the past 12 months, how m any times have you moved where you were living? 0 06/22/2025 At any time in the past 12 m [facility], were you homeless or living in a prison (including now)? No 06/22/2025 [facility] Utilities Answer Date Recorded In the past 12 months has th [employer], gas, oil, or water [employer] threatened to shut off services in your home? No 06/22/2025 Personal Safety Answer Date Recorded Have you ever been in or are you currently in a harmful physical or emotional relationship or is someone making you feel afraid or unsafe? Denies 06/18/2025 Comments No Sex and Gender Information Value Date Recorded Sex Assigned at Not on file Legal Sex Female 1:42 AM COUNTERSINKER Gender Identity Not on file Sexual Orientation Not on file Occupation Industry Job Start Date Job End Date Not on file Not on file Not on file Not on file Last Filed Vital Signs Vital Sign Reading Time Taken Comments Blood Pressure 164/60 08/10/2025 3:10 PM COUNTERSINKER Pulse 60 08/10/2025 3:10 PM COUNTERSINKER Temperature 36 C (96.8 F) 08/10/2025 3:10 PM COUNTERSINKER Respiratory Rate 18 08/10/2025 3:10 PM COUNTERSINKER Oxygen Saturation 95% 08/10/2025 3:10 PM COUNTERSINKER Inhaled Oxygen Concentration - - Weight 81.6 kg (180 lb) 08/10/2025 3:10 PM COUNTERSINKER Height 165.1 cm (5' 5) 08/10/2025 3:10 PM COUNTERSINKER Body Mass Index 29.95 08/10/2025 3:10 PM COUNTERSINKER Plan of Treatment Health Maintenance Due Date Last Done Comments Albumin Creatinine Ratio, Urine 1935 Depression Screening 1935 Foot Exam 1935 Osteoporosis Screening-Bone Density Scan 1935 Dilated Eye Exam 12/02/1945 DTaP/Tdap/Td Vaccine (1 - Tdap) 12/02/1946 Hepatitis B Screening 12/02/1953 Pneumococcal vaccine 65+ (1 of 2 - PCV) 12/02/1954 Zoster Vaccine (1 of 2) 12/02/1985 Well Visit 65+ 12/02/2000 Covid-19 Vaccine (4 - 2024-2 6 season) 2025 08/02/2021, 12/19/2020, 11/21/2020 Influenza Vaccine (#1) 2025 Hemoglobin A1C 12/17/2025 06/19/2025, 05/31, 03/07/2021 Lipid Panel 06/18/2026 06/18/2025 TSH Level 06/19/2026 06/19/2025, 06/19/2025 eGFR 06/20/2026 06/20/2025, 06/01, 06/19/2025, Additional history exists Fall Risk Assessment 06/21/2026 06/21/2025 Procedures Procedure Name Priority Date/Time Associated Diagnosis Comments XR CHEST PA LATERAL 2 VIEWS Schedule Routine, Read Routine (OP Routine) 08/10/2025 4:20 PM COUNTERSINKER GREGG (obstructive sleep apnea) Simple chronic bronchitis (HCC) Psychophysiologic al insomnia Restless legs POCT GLUCOSE DEVICE Routine 06/21/2025 1 1:55 AM CDT POCT GLUCOSE DEVICE Routine 06/21/2025 7 :40 AM CDT POCT GLUCOSE DEVICE Routine 06/20/2025 1 0:06 PM CDT EGFR Routine 06/20/2025 10:06 PM CDT CBC WITHOUT DIFFERENTIAL Routine 06/20/2025 10:06 PM CDT BASIC METABOLIC PANEL Routine 06/20/2025 10:06 PM CDT US KIDNEY COMPLETE IP Routine 06/20/2025 8: 10 PM CDT POCT GLUCOSE DEVICE Routine 06/20/2025 4 :53 PM CDT POCT GLUCOSE DEVICE Routine 06/20/2025 1 1:36 AM CDT URINALYSIS AND REFLEX TO MICROSCOPIC AND CULTURE Routine 06/20/2025 11:28 AM CDT POCT GLUCOSE DEVICE Routine 06/20/2025 7 :39 AM CDT POCT GLUCOSE DEVICE Routine 06/19/2025 9 :03 PM CDT EGFR Routine 06/19/2025 8:40 PM CDT CBC WITHOUT DIFFERENTIAL Routine 06/19/2025 8:40 PM CDT BASIC METABOLIC PANEL Routine 06/19/2025 8:40 PM CDT POCT GLUCOSE DEVICE Routine 06/19/2025 4 :30 PM CDT TRANSTHORACIC ECHO (TTE) COMPLETE W DOPPLER/CF W CONTRAST Routine 06/19/2025 2:21 PM CDT POTASSIUM, WHOLE BLOOD Routine 06/19/2025 11:51 AM CDT XR ABDOMEN AP 1 VIEW IP Routine 06/19/2025 11:22 AM CDT THYROID FUNCTION CASCADE Routine 06/19/2025 5:56 AM CDT EGFR Routine 06/19/2025 5:56 AM CDT BASIC METABOLIC PANEL Routine 06/19/2025 5:56 AM CDT POTASSIUM LEVEL Timed 06/18/2025 9:10 PM CDT POTASSIUM LEVEL Timed 06/18/2025 5:44 PM CDT POCT GLUCOSE DEVICE Routine 06/18/2025 5 :41 PM CDT ECG 12-LEAD Routine 06/18/2025 4:12 PM CDT PRO B-TYPE NATRIURETIC PEPTIDE STAT 06/18/2025 3:38 PM CDT RESPIRATORY PATHOGEN PANEL STAT 06/18/2025 3:38 PM CDT POCT GLUCOSE DEVICE Routine 06/18/2025 3 :36 PM CDT POCT GLUCOSE DEVICE Routine 06/18/2025 2 :12 PM CDT CRITICAL RESULT CALLBACK CHEMISTRY Timed 06/18/2025 1:47 PM CDT POTASSIUM LEVEL Timed 06/18/2025 1:47 PM CDT TROPONIN I HIGH-SENSITIVITY 2-HOUR Timed 06/18/2025 1:47 PM CDT HEMOGLOBIN A1C STAT 06/18/2025 12:34 PM CDT LIPID PANEL STAT 06/18/2025 12:34 PM CDT EGFR STAT 06/18/2025 12:34 PM CDT CRITICAL RESULT CALLBACK CHEMISTRY STAT 06/18/2025 12:34 PM CDT DIFFERENTIAL AUTO STAT 06/18/2025 12: 34 PM CDT TROPONIN I HIGH-SENSITIVITY SERIES (BASELINE, 2HR, 4HR, 6HR) STAT 06/18/2025 12:34 PM CDT CBC WITH AUTO DIFFERENTIAL STAT 06/18/2025 12:34 PM CDT COMPREHENSIVE METABOLIC PANEL STAT 06/18/2025 12:34 PM CDT XR CHEST 1 VIEW ED 06/18/2025 11:09 AM CDT ECG 12-LEAD STAT 06/18/2025 10:59 AM CDT POCT GLUCOSE DEVICE Routine 06/18/2025 1 0:48 AM CDT HOME O2 EVAL (DESATURATION SCREEN) Routine 06/09/2025 10:12 AM CDT VITAMIN D 25 HYDROXY Routine 06/09/2025 8:44 AM CDT MAGNESIUM Routine 06/09/2025 8:44 AM CDT EGFR Routine 06/08/2025 2:31 AM CDT DIFFERENTIAL AUTO Routine 06/08/2025 2:3 1 AM CDT BASIC METABOLIC PANEL Routine 06/08/2025 2:31 AM CDT CBC WITH AUTO DIFFERENTIAL Routine 06/08/2025 2:31 AM CDT BLOOD CULTURE STAT 06/08/2025 2:31 AM CDT BLOOD CULTURE STAT 06/07/2025 1:26 PM CDT VANCOMYCIN LEVEL RANDOM Timed 06/07/2025 10:47 AM CDT EGFR Routine 06/07/2025 4:40 AM CDT DIFFERENTIAL AUTO Routine 06/07/2025 4:4 0 AM CDT BASIC METABOLIC PANEL Routine 06/07/2025 4:40 AM CDT CBC WITH AUTO DIFFERENTIAL Routine 06/07/2025 4:40 AM CDT EGFR Routine 06/06/2025 5:28 AM CDT DIFFERENTIAL AUTO Routine 06/06/2025 5:2 8 AM CDT BASIC METABOLIC PANEL Routine 06/06/2025 5:28 AM CDT CBC WITH AUTO DIFFERENTIAL Routine 06/06/2025 5:28 AM CDT POCT GLUCOSE DEVICE Routine 06/05/2025 1 2:24 PM CDT POCT GLUCOSE DEVICE Routine 06/05/2025 8 :51 AM CDT EGFR Routine 06/05/2025 6:43 AM CDT DIFFERENTIAL AUTO Routine 06/05/2025 6:4 3 AM CDT BASIC METABOLIC PANEL Routine 06/05/2025 6:43 AM CDT CBC WITH AUTO DIFFERENTIAL Routine 06/05/2025 6:43 AM CDT TROPONIN T HIGH-SENSITIVITY 6-HOUR Timed 06/04/2025 8:54 PM CDT POCT GLUCOSE DEVICE Routine 06/04/2025 8 :39 PM CDT TROPONIN T HIGH-SENSITIVITY 4-HR Timed 06/04/2025 5:23 PM CDT SEPSIS LACTATE WITH REFLEX STAT 06/04/2025 4:14 PM CDT BLOOD CULTURE STAT 06/04/2025 4:[address] CHEST ABDOMEN PELVIS WO CONTRAST ED 06/04/2025 4:[address] HEAD WO CONTRAST ED 06/04/2025 4 :06 PM CDT BLOOD CULTURE STAT 06/04/2025 2:54 PM CDT URINALYSIS, MICROSCOPIC ONLY STAT 06/04/2025 1:25 PM CDT URINE CULTURE STAT 06/04/2025 1:25 PM CDT URINALYSIS AND REFLEX TO MICROSCOPIC AND CULTURE STAT 06/04/2025 1:25 PM CDT XR CHEST 1 VIEW ED 06/04/2025 1:02 PM CDT TROPONIN T HIGH-SENSITIVITY SERIES (BASELINE, 2HR, 4HR, 6HR) STAT 06/04/2025 12:56 PM CDT PRO B-TYPE NATRIURETIC PEPTIDE STAT 06/04/2025 12:56 PM CDT EGFR STAT 06/04/2025 12:56 PM CDT MAGNESIUM STAT 06/04/2025 12:56 PM CDT DIFFERENTIAL AUTO STAT 06/04/2025 12: 56 PM CDT COMPREHENSIVE METABOLIC PANEL STAT 06/04/2025 12:56 PM CDT CBC WITH AUTO DIFFERENTIAL STAT 06/04/2025 12:56 PM CDT INFLUENZA A/B, RSV, AND COVID-19 PCR STAT 06/04/2025 12:56 PM CDT POCT GLUCOSE DEVICE Routine 06/04/2025 1 2:53 PM CDT ECG 12-LEAD STAT 06/04/2025 12:33 PM CDT from Last 3 Months Results * XR Chest Pa Lateral 2 Views (08/10/2025 4:20 PM COUNTERSINKER) Anatomical Region Laterality Modality Body, Chest N/A Computed Radiogr aphy 08/11/2025 11:2 3 AM COUNTERSINKER Impressions 08/11/2025 11:23 AM COUNTERSINKER No radiographic evidence of an acute cardiopulmonary abnormality. Electronically signed by: Cortes Mercado M.D. Narrative 08/11/2025 11:23 AM COUNTERSINKER EXAMINATION: XR CHEST PA LATERAL 2 VIEWS. TECHNIQUE: Two radiographic views of the chest. HISTORY: Obstructive sleep apnea (adult) (pediatric) COMPARISON: 06/17/2025 06/04/2025 04/07/2025 FINDINGS: Support devices: None. Lungs: Streaky opacities of the bilateral lung bases likely atelectasis/scarring. No focal consolidation, pneumothorax, or pleural effusion. Heart/Mediastinum: Normal heart size. Bones/Soft Tissues: ACDF hardware. Moderate bilateral glenohumeral osteoarthrosis. No acute displaced fracture. Multilevel degenerative changes of the visualized spine. Vascular calcifications. Right upper quadrant surgical clips. Procedure Note Cortes Mercado MD - 08/11/2025 EXAMINATION: XR CHEST PA LATERAL 2 VIEWS. TECHNIQUE: Two radiographic views of the chest. HISTORY: Obstructive sleep apnea (adult) (pediatric) COMPARISON: 06/17/2025 06/04/2025 04/07/2025 FINDINGS: Support devices: None. Lungs: Streaky opacities of the bilateral lung bases likely atelectasis/scarring. No focal consolidation, pneumothorax, or pleural effusion. Heart/Mediastinum: Normal heart size. Bones/Soft Tissues: ACDF hardware. Moderate bilateral glenohumeral osteoarthrosis. No acute displaced fracture. Multilevel degenerative changes of the visualized spine. Vascular calcifications. Right upper quadrant surgical clips. IMPRESSION: No radiographic evidence of an acute cardiopulmonary abnormality. Electronically signed by: Cortes Mercado M.D. Markus Webb MD IMG XR PROCEDURES Final Res ult * POCT glucose (06/21/2025 11:55 AM CDT) Glucose, POC 186 70 - 199 mg/dL Blood 06/21/2025 11:5 5 AM CDT 06/21/2025 11:55 AM CDT us Ashlee Nelson MD LAB POCT ORDERA BLES - DEVICE Final Result [facility] Department of Laboratories [place], [place] [id number] * POCT glucose (06/21/2025 7:40 AM CDT) Glucose, POC 116 70 - 199 mg/dL Blood 06/21/2025 7:40 AM CDT 06/21/2025 7:40 AM CDT Ashlee Gardenia Elysia Nelson MD LAB POCT ORDERA BLES - DEVICE Final Result Performing Organization Address City/[facility]/ZIP Co de Phone Number [facility] [place] [address] * (ABNORMAL) eGFR (06/20/2025 10:06 PM CDT) eGFR 21(L) >=60 mL/min/1. 73 m2 Comment: Interpretive Data Reference Interval Normal >/= 90 mL/min/1.73m2 Mildly decreased* 60 - 89 mL/min/1.73m2 Mildly to moderately decreased 45 - 59 mL/min/1.73m2 Moderately to severely decreased 30 - 44 mL/min/1.73m2 Severely decreased 15 - 29 mL/min/1.73m2 Kidney Failure < 15 mL/min/1.73m2 *Relative to young adult level Estimated glomerular filtration rate is determined by the 2020 CKD-EPI equation recommended by the National Kidney Foundation (A Unifying Approach to GFR Estimation: Recommendations of the NKF-ASK Task Force on Reassessing the Inclusion of Race in Diagnosing Kidney Disease, JASN 2020). The CKD-EPI equation should not be used for patients with unstable renal function and has not been validated in children and those over 70. Current interpretive data was last reviewed 2021. Blood 06/20/2025 10:0 6 PM CDT 06/20/2025 11:31 PM CDT Narcisa Horan MD LAB BLOOD ORDERABLES Final Result [facility] [place] [address] * POCT glucose (06/20/2025 10:06 PM CDT) Glucose, POC 191 70 - 199 mg/dL Blood 06/20/2025 10:0 6 PM CDT 06/20/2025 10:06 PM CDT Ashlee Nelson MD LAB POCT ORDERA BLES - DEVICE Final Result Performing Organization Address [facility]/ZIP Co de Phone Number [facility] Department [place] [address] * (ABNORMAL) CBC without differential (06/20/2025 10:06 PM CDT) [facility] WBC 9.98(H) 3.80 - 9.90 K/cumm Hgb 11.6(L) 11.9 - 15.5 g/dL [facility] Hct 37.3 35.6 - 45.5 % [facility] Plt 214 150 - 400 K/cumm [facility] MPV 12.7(H) 9.1 - 12.3 fL [facility] RBC 4.12 3.90 - 5.20 M/cumm [facility] MCV 90.5 81.3 - 96.4 fL [facility] MCH 28.2 27.1 - 33.3 pg [facility] MCHC 31.1(L) 32.3 - 35.7 g/dL [facility] RDW CV 14.5 11.1 - 14.9 % [facility] RDW SD 47.2 35.7 - 48.1 fL [facility] NRBC abs 0.00 0.00 - 0.01 K/cumm [facility] Blood 06/20/2025 10:0 6 PM CDT 06/20/2025 11:29 PM CDT Narcisa Horan MD LAB BLOOD ORDERABLES Final Result [facility] [place] [address] * (ABNORMAL) Basic metabolic panel (06/20/2025 10:06 PM CDT) [facility] Sodium 142 135 - 145 mmol/L Potassium, pl 4.1 3.3 - 4.9 mmol/L [facility] Chloride 105 97 - 110 mmol/L [facility] CO2 27 22 - 32 mmol/L [facility] Anion gap 10 2 - 15 mmol/L [facility] BUN 35(H) 6 - 25 mg/dL [facility] Creatinine 2.15(H) 0.60 - 1.10 mg/dL [facility] Glucose 197 70 - 199 mg/dL [facility] Comment: Interpretive Data Fasting glucose >/= 126 mg/dl is diagnostic for diabetes. Fasting is defined as no caloric intake for at least 8 hours. Fasting glucose between 100 mg/dl to 125 mg/dl is diagnostic of prediabetes. In a patient with classic symptoms of hyperglycemia or hyperglycemic crisis, a random glucose >/= 200 mg/dl is diagnostic for diabetes. In the absence of unequivocal hyperglycemia, results should be confirmed by repeat testing. The classification and Diagnosis of Diabetes Diabetes Care 2021; 46: S19-S40. Current interpretive data was last revised 2022. Calcium 8.2(L) 8.5 - 10.3 mg/dL [facility] Blood 06/20/2025 10:0 6 PM CDT 06/20/2025 11:31 PM CDT Narcisa Horan MD LAB BLOOD ORDERABLES Final Result [facility] [place] [address] * US Kidney Complete (06/20/2025 8:10 PM CDT) Anatomical Region Laterality Modality Kidney N/A Ultrasound 06/21/2025 4:41 AM CDT Impressions 06/21/2025 4:41 AM CDT Normal kidneys. No hydronephrosis. Electronically signed by: Kirill Casillas M.D. Narrative 06/21/2025 4:41 AM CDT EXAMINATION: COMPLETE RENAL SONOGRAM HISTORY: Acute kidney injury COMPARISON: Noncontrast CT 06/04/2025. FINDINGS: Kidneys: The kidneys are normal in size. The right kidney measures 9.1 cm in length, and the left, 9.6 cm in length. There is no hydronephrosis in either kidney. There is a small nonobstructing stone in the mid left kidney. Bladder: The urinary bladder is normal Procedure Note Kirill Casillas MD - 06/21/2025 EXAMINATION: COMPLETE RENAL SONOGRAM HISTORY: Acute kidney injury COMPARISON: Noncontrast CT 06/04/2025. FINDINGS: Kidneys: The kidneys are normal in size. The right kidney measures 9.1 cm in length, and the left, 9.6 cm in length. There is no hydronephrosis in either kidney. There is a small nonobstructing stone in the mid left kidney. Bladder: The urinary bladder is normal IMPRESSION: Normal kidneys. No hydronephrosis. Electronically signed by: Kirill Casillas M.D. Ashlee Nelson MD IMG US PROCEDUR ES Final Result * POCT glucose (06/20/2025 4:53 PM CDT) Glucose, POC 129 70 - 199 mg/dL Blood 06/20/2025 4:53 PM CDT 06/20/2025 4:53 PM CDT Ashlee Nelson MD LAB POCT ORDERA BLES - DEVICE Final Result Performing Organization Address [facility]/ZIP Co de Phone Number [facility] Department [place] [address] * POCT glucose (06/20/2025 11:36 AM CDT) Glucose, POC 153 70 - 199 mg/dL Blood 06/20/2025 11:3 6 AM CDT 06/20/2025 11:36 AM CDT Ashlee Nelson MD LAB POCT ORDERA BLES - DEVICE Final Result Performing Organization Address City/State/[facility] Co de Phone Number [facility] [place] [address] * Urinalysis reflex to microscopic and culture Urine (06/20/2025 11:28 AM CDT) Color, ur Straw Yellow Clarity, ur Clear Clear [facility] Specific gravity, ur 1.017 1.003 - 1.030 [facility] pH, urine 7.0 [facility] Comment: Interpretive Data U rine pH is affected by diet, medications, systemic acid-base disturbances, and renal tubular function. pH may affect urinary stone formation. For example, urine pH below 6.0 may help reduce the tendency for calcium phosphate stones and pH greater than 6.0 may reduce the tendency for uric acid stone formation. Source: [facility] Current Interpretive Data was last revised on 2017 Protein, ur ql Negative Negative [facility] Glucose, ur ql Negative Negative [facility] Ketones, ur Negative Negative [facility] Bilirubin, ur Negative Negative [facility] Blood, ur Negative Negative [facility] Urobilinogen, ur <2.0 <2.0 mg/dL [facility] Nitrite, ur Negative Negative [facility] Leukocyte esterase, ur Negative Negative [facility] UA reflex comment Reflex conditions for microscopic UA and culture not met. [facility] Urine 06/20/2025 11:2 8 AM CDT 06/20/2025 12:29 PM CDT Ashlee Nelson MD LAB MICROBIOLOG Y - GENERAL ORDERABLES Final Result [facility] [place] [address] * POCT glucose (06/20/2025 7:39 AM CDT) Glucose, POC 118 70 - 199 mg/dL Blood 06/20/2025 7:39 AM CDT 06/20/2025 7:39 AM CDT us Ashlee Nelson MD LAB POCT ORDERA BLES - DEVICE Final Result Performing Organization Address City/[facility]/ZIP Co de Phone Number [facility] [place] [address] * (ABNORMAL) POCT glucose (06/19/2025 9:03 PM CDT) Glucose, POC 218(H) 70 - 199 mg/dL Comment:Glu2: RN/MD Notified Glucose comment 1 Glu2: RN/MD Notified [facility] Blood 06/19/2025 9:03 PM CDT 06/19/2025 9:03 PM CDT Ashlee Nelson MD LAB POCT ORDERA BLES - DEVICE Final Result Performing Organization Address [facility] Co de Phone Number [facility] Department [place] [address] * (ABNORMAL) eGFR (06/19/2025 8:40 PM CDT) eGFR 23(L) >=60 mL/min/1. 73 m2 Comment: Interpretive Data Reference Interval Normal >/= 90 mL/min/1.73m2 Mildly decreased* 60 - 89 mL/min/1.73m2 Mildly to moderately decreased 45 - 59 mL/min/1.73m2 Moderately to severely decreased 30 - 44 mL/min/1.73m2 Severely decreased 15 - 29 mL/min/1.73m2 Kidney Failure < 15 mL/min/1.73m2 *Relative to young adult level Estimated glomerular filtration rate is determined by the 2020 CKD-EPI equation recommended by the National Kidney Foundation (A Unifying Approach to GFR Estimation: Recommendations of the NKF-ASK Task Force on Reassessing the Inclusion of Race in Diagnosing Kidney Disease, JASN 2020). The CKD-EPI equation should not be used for patients with unstable renal function and has not been validated in children and those over 70. Current interpretive data was last reviewed 2021. Blood 06/19/2025 8:40 PM CDT 06/19/2025 9:19 PM CDT Narcisa Horan MD LAB BLOOD ORDERABLES Final Result [facility] Department [place] [address] * (ABNORMAL) CBC without differential (06/19/2025 8:40 PM CDT) WBC 10.14(H) 3.80 - 9.90 K/cumm Hgb 12.0 11.9 - 15.5 g/dL [facility] Hct 39.2 35.6 - 45.5 % [facility] Plt 226 150 - 400 K/cumm [facility] MPV 12.5(H) 9.1 - 12.3 fL [facility] RBC 4.32 3.90 - 5.20 M/cumm [facility] MCV 90.7 81.3 - 96.4 fL [facility] MCH 27.8 27.1 - 33.3 pg [facility] MCHC 30.6(L) 32.3 - 35.7 g/dL [facility] RDW CV 14.4 11.1 - 14.9 % [facility] RDW SD 47.6 35.7 - 48.1 fL [facility] NRBC abs 0.00 0.00 - 0.01 K/cumm [facility] Blood 06/19/2025 8:40 PM CDT 06/19/2025 9:20 PM CDT Narcisa Horan MD LAB BLOOD ORDERABLES Final Result Performing Organization Address City/[facility]/ZIP Co de Phone Number [facility] [place] [address] * (ABNORMAL) Basic metabolic panel (06/19/2025 8:40 PM CDT) Sodium 141 135 - 145 mmol/L Potassium, pl 4.3 3.3 - 4.9 mmol/L [facility] Chloride 105 97 - 110 mmol/L [facility] CO2 27 22 - 32 mmol/L [facility] Anion gap 9 2 - 15 mmol/L [facility] BUN 31(H) 6 - 25 mg/dL [facility] Creatinine 2.04(H) 0.60 - 1.10 mg/dL [facility] Glucose 190 70 - 199 mg/dL [facility] Comment: Interpretive Data Fasting glucose >/= 126 mg/dl is diagnostic for diabetes. Fasting is defined as no caloric intake for at least 8 hours. Fasting glucose between 100 mg/dl to 125 mg/dl is diagnostic of prediabetes. In a patient with classic symptoms of hyperglycemia or hyperglycemic crisis, a random glucose >/= 200 mg/dl is diagnostic for diabetes. In the absence of unequivocal hyperglycemia, results should be confirmed by repeat testing. The classification and Diagnosis of Diabetes Diabetes Care 2021; 46: S19-S40. Current interpretive data was last revised 2022. Calcium 8.5 8.5 - 10.3 mg/dL [facility] Blood 06/19/2025 8:40 PM CDT 06/19/2025 9:19 PM CDT Narcisa Horan MD LAB BLOOD ORDERABLES Final Result Performing Organization Address City/[facility]/ZIP Co de Phone Number [facility] Department [place] [address] * POCT glucose (06/19/2025 4:30 PM CDT) [facility] Signature Glucose, POC 175 70 - 199 mg/dL Blood 06/19/2025 4:30 PM CDT 06/19/2025 4:30 PM CDT Ashlee Nelson MD LAB POCT ORDERA BLES - DEVICE Final Result Performing Organization Address City/[facility]/ZIP Co de Phone Number [facility] [place] [employer] [place] [address] * TRANSTHORACIC ECHO (TTE) COMPLETE W DOPPLER/CF W CONTRAST (06/19/2025 2:21 PM CDT) EF Mod BP 82 % CONS SCIMAGE Anatomical Region Laterality Modality Ultrasound 06/19/2025 1:28 PM CDT Narrative 06/19/2025 2:36 PM CDT [facility] Cardiac [place] [address] Transthoracic Echocardiographic Report Patient Name: MONAE YODER M : 1935 (89y 6m) Sex: F Study Date: 06/19/2025 13:28:08 Ht(Inch): 66 Wt(Lb): 171.08 BSA: 1.9 Online Content Developer: Dino Moore [facility] Location: [id number] Order Provider: NARCISA HORAN BMI: 27.61 BP: 134 / 77 Ref Provider: NARCISA HORAN - PROCEDURES: Echocardiographic Report: Transthoracic complete echo with strain imaging and contrast, 2D, spectral and tissue Doppler, color flow Doppler, M-mode. Contrast: 0.6 ml Optison Administered, (2.4 ml wasted). Technically difficult study due to: Body habitus. Poor acoustic windows. INDICATIONS: Congestive heart failure. CONCLUSIONS: 1. Normal left ventricular size based on volume index. Concentric LV remodeling. There is hyperdynamic left ventricular systolic function. The Ejection Fraction (Irwin's) is measured at 82 %. Grade I diastolic dysfunction (normal LA pressure). No left ventricular thrombus visualized. 2. Resting Segmental Wall Motion Analysis: Total wall motion score is 1.24. 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 The remaining left ventricular segments demonstrate normal wall motion. 3. Normal right ventricular size. Mild right ventricular hypokinesis. 4. Anterior and posterior mitral valve leaflets appear calcified. Moderate mitral annular calcification. No mitral regurgitation. No stenosis present. 5. Normal pericardium without pericardial effusion. ATTESTATION: I have personally reviewed and interpreted this study without fellow or resident. DISCLAIMER: The study images and the final report will be retained in the patient chart by the Echo Laboratory for the legally required time period. This chart constitutes the legal record of any testing performed. FINDINGS: Left Ventricle: Normal left ventricular size based on volume index. Concentric LV remodeling. There is hyperdynamic left ventricular systolic function. The Ejection Fraction (Irwin's) is measured at 82 %. Grade I diastolic dysfunction (normal LA pressure). Unable to assess global longitudinal strain due to image quality. No left ventricular thrombus visualized. Resting Segmental Wall Motion Analysis: Total wall motion score is 1.24. 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 The remaining left ventricular segments demonstrate normal wall motion. Right Ventricle: Normal right ventricular size. Mild right ventricular hypokinesis. Left Atrium: The left atrium is normal in size. Right Atrium: The right atrium is normal in size. Mitral Valve: Anterior and posterior mitral valve leaflets appear calcified. Moderate mitral annular calcification. No mitral regurgitation. No stenosis present. Aortic Valve: The mean transaortic gradient is 5 mmHg. Tricuspid Valve: Normal tricuspid valve structure. No tricuspid regurgitation. No tricuspid valve stenosis. Pulmonic Valve: The pulmonic valve is not well visualized due to poor acoustic windows. No pulmonic regurgitation. No pulmonic valve stenosis present. Pericardium: Normal pericardium without pericardial effusion. Aorta: Normal aortic root size at sinuses of Valsalva. Normal aortic root size when indexed. IVC: IVC is normal in size. PASP: Unable to determine PASP due to inadequate TR jet, but the mean PA pressure appears normal based on the PV acceleration time. Rhythm: Normal Sinus rhythm was seen during the study. MEASUREMENTS: 2D/MM Value Range Doppler Value Range LVIDd 2D 4.17 cm [ 3.80 - 5.20 ] AV Peak Miah 1.4 m/s [ 1.0 - 1.7 ] LVIDs 2D 2.31 cm [ 2.20 - 3.50 ] AV Peak PG 7.84 mmHg IVSd 2D 0.99 cm [ 0.60 - 0.90 ] AV Mean PG 5 mmHg LVPWd 2D 0.98 cm [ 0.60 - 0.90 ] AV VTI 28.5 cm LV Thickness Ratio 1.0 LVOT Diam 1.86 cm LV FS 2D 44.75 % [ 27.00 - 45.00 ] AI Peak Miah 1.0 m/s LV Mass 2D 135.18 g AI Peak PG 4 mmHg LV Mass Index 2D 71.11 g/m2 MV E Peak Miah 0.6 m/s [ 0.6 - 1.3 ] RWT 0.47 MV A Peak Miah 1.2 m/s [ 1.0 - 1.2 ] EDV Mod BP 71.59 ml [ 46.00 - 106.00 ] MV E/A 0.5 ratio [ 0.8 - 1.5 ] LV EDV Index 37.66 ml/m2 MV Decel Time 369.67 msec [ 104.00 - 258.00 ] ESV Mod BP 12.64 ml [ 14.00 - 42.00 ] Med E` Miah 5.4 cm/sec [ 8.0 - 25.0 ] EF Mod BP 82 % [ 54 - 74 ] Lat E` Miah 6.9 cm/sec [ 10.0 - 25.0 ] LA Length 4C 5.28 cm Average E/E` 9.76 LA Length 2C 4.71 cm RV S` 8.95 cm/sec RV Base Dimen 2D 2.1 cm [ 2.5 - 4.2 ] PV Peak Miah 1.1 m/s [ 0.4 - 0.8 ] TAPSE 1.35 cm [ 1.71 - 5.00 ] PV Peak PG 4.84 mmHg RA Volume 27.15 ml RA Volume Index 14.28 ml/m2 AoR Diam 2D 3.04 cm [ 2.70 - 3.70 ] Ao Root Index 1.60 cm/m2 [ 1.00 - 2.00 ] Electronically Signed By: Calin Gomez MD 06/19/2025 14:36:10 CDT Procedure Note Calin Gomez MD - 06/19/2025 [facility] Cardiac [place] [address] Transthoracic Echocardiographic Report Patient Name: MONAE YODER M : 1935 (89y 6m) Sex: F Study Date: 06/19/2025 13:28:08 Ht(Inch): 66 Wt(Lb): 171.08 BSA: 1.9 Online Content Developer: Dino Moore [facility] Location: [id number] Order Provider:ANRCISA HORAN BMI: 27.61 BP: 134 / 77 Ref Provider: NARCISA HORAN - PROCEDURES: Echocardiographic Report: Transthoracic complete echo with strain imagingand contrast, 2D, spectral and tissue Doppler, color flow Doppler, M-mode. Contrast: 0.6 ml Optison Administered, (2.4 ml wasted). Technically difficult study due to: Body habitus. Poor acoustic windows. INDICATIONS: Congestive heart failure. CONCLUSIONS: 1. Normal left ventricular size based on volume index. Concentric LVremodeling. There is hyperdynamic left ventricular systolic function. The Ejection Fraction(Irwin's) is measured at 82 %. Grade I diastolic dysfunction (normal LA pressure). Noleft ventricular thrombus visualized. 2. Resting Segmental Wall Motion Analysis: Total wall motion score is1.24. 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 The remaining left ventricularsegments demonstrate normal wall motion. 3. Normal right ventricular size. Mild right ventricular hypokinesis. 4. Anterior and posterior mitral valve leaflets appear calcified. Moderatemitral annular calcification. No mitral regurgitation. No stenosis present. 5. Normal pericardium without pericardial effusion. ATTESTATION: I have personally reviewed and interpreted this study without fellow orresident. DISCLAIMER: The study images and the final report will be retained in the patientchart by the Echo Laboratory for the legally required time period. This chart constitutesthe legal record of any testing performed. FINDINGS: Left Ventricle: Normal left ventricular size based on volume index.Concentric LV remodeling. There is hyperdynamic left ventricular systolic function. TheEjection Fraction (Irwin's) is measured at 82 %. Grade I diastolic dysfunction(normal LA pressure). Unable to assess global longitudinal strain due to imagequality. No left ventricular thrombus visualized. 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 The remaining left ventricularsegments demonstrate normal wall motion. Right Ventricle: Normal right ventricular size. Mild right ventricularhypokinesis. Left Atrium: The left atrium is normal in size. Right Atrium: The right atrium is normal in size. Mitral Valve: Anterior and posterior mitral valve leaflets appearcalcified. Moderate mitral annular calcification. No mitral regurgitation. No stenosispresent. Aortic Valve: The mean transaortic gradient is 5 mmHg. Tricuspid Valve: Normal tricuspid valve structure. No tricuspidregurgitation. No tricuspid valve stenosis. Pulmonic Valve: The pulmonic valve is not well visualized due to pooracoustic windows. No pulmonic regurgitation. No pulmonic valve stenosis present. Pericardium: Normal pericardium without pericardial effusion. Aorta: Normal aortic root size at sinuses of Valsalva. Normal aortic rootsize when indexed. IVC: IVC is normal in size. PASP: Unable to determine PASP due to inadequate TR jet, but the mean PApressure appears normal based on the PV acceleration time. Rhythm: Normal Sinus rhythm was seen during the study. MEASUREMENTS: 2D/MM Value Range DopplerValue Range LVIDd 2D 4.17 cm [ 3.80 - 5.20 ] AV Peak Vel1.4 m/s [ 1.0 - 1.7 ] LVIDs 2D 2.31 cm [ 2.20 - 3.50 ] AV Peak PG7.84 mmHg IVSd 2D 0.99 cm [ 0.60 - 0.90 ] AV Mean PG5 mmHg LVPWd 2D 0.98 cm [ 0.60 - 0.90 ] AV VTI28.5 cm LV Thickness Ratio 1.0 LVOT Diam1.86 cm LV FS 2D 44.75 % [ 27.00 - 45.00 ] AI Peak Vel1.0 m/s LV Mass 2D 135.18 g AI Peak PG4 mmHg LV Mass Index 2D 71.11 g/m2 MV E Peak Vel0.6 m/s [ 0.6 - 1.3 ] RWT 0.47 MV A Peak Vel1.2 m/s [ 1.0 - 1.2 ] EDV Mod BP 71.59 ml [ 46.00 - 106.00 ] MV E/A0.5 ratio [ 0.8 - 1.5 ] LV EDV Index 37.66 ml/m2 MV Decel Hsgr770.67 msec [ 104.00 - 258.00 ] ESV Mod BP 12.64 ml [ 14.00 - 42.00 ] Med E` Vel5.4 cm/sec [ 8.0 - 25.0 ] EF Mod BP 82 % [ 54 - 74 ] Lat E` Vel6.9 cm/sec [ 10.0 - 25.0 ] LA Length 4C 5.28 cm Average E/E`9.76 LA Length 2C 4.71 cm RV S`8.95 cm/sec RV Base Dimen 2D 2.1 cm [ 2.5 - 4.2 ] PV Peak Vel1.1 m/s [ 0.4 - 0.8 ] TAPSE 1.35 cm [ 1.71 - 5.00 ] PV Peak PG4.84 mmHg RA Vzirtg67.15 ml RA Volume Index14.28 ml/m2 AoR Diam 2D 3.04 cm [ 2.70 - 3.70 ] Ao Root Index 1.60 cm/m2 [ 1.00 - 2.00 ] Electronically Signed By: Calin Gomez MD 06/19/2025 14:36:10 CDT Narcisa Horan MD CV ECHO PROCEDURES Final R esult * Potassium, whole blood (06/19/2025 11:51 AM CDT) Potassium, bld 4.8 3.3 - 4.9 mmol/L Blood 06/19/2025 11:5 1 AM CDT 06/19/2025 12:11 PM CDT Ashlee Nelson MD LAB BLOOD ORDER JENIFER Final Result [facility] [place] [address] * XR Abdomen 1 View AP (06/19/2025 11:22 AM CDT) Anatomical Region Laterality Modality Body, Abdomen N/A Computed Radiogr aphy 06/19/2025 11:3 6 AM CDT Impressions 06/19/2025 11:41 AM CDT Normal bowel gas pattern. Residual enteric contrast is noted throughout the bowel. Partially imaged right-sided femoral arthroplasty. Dictated by: Jimmie Guerrero M.D. The radiology attending physician has personally reviewed this study, and had reviewed and/or edited this written report and agrees with it. Electronically signed by: Darrick Way M.D. Narrative 06/19/2025 11:41 AM CDT EXAMINATION: Abdomen, one view. HISTORY: Abdominal pain. COMPARISON: 06/04/[address] MD - 06/19/2025 EXAMINATION: Abdomen, one view. HISTORY: Abdominal pain. COMPARISON: 06/04/2025 IMPRESSION: Normal bowel gas pattern. Residual enteric contrast is noted throughout the bowel. Partially imaged right-sided femoral arthroplasty. Dictated by: Jimmie Guerrero M.D. The radiology attending physician has personally reviewed this study, and had reviewed and/or edited this written report and agrees with it. Electronically signed by: Darrick Way M.D. Ashlee Nelson MD IMG XR PROCEDUR ES Final Result * (ABNORMAL) eGFR (06/19/2025 5:56 AM CDT) eGFR 25(L) >=60 mL/min/1. 73 m2 Comment: Interpretive Data Reference Interval Normal >/= 90 mL/min/1.73m2 Mildly decreased* 60 - 89 mL/min/1.73m2 Mildly to moderately decreased 45 - 59 mL/min/1.73m2 Moderately to severely decreased 30 - 44 mL/min/1.73m2 Severely decreased 15 - 29 mL/min/1.73m2 Kidney Failure < 15 mL/min/1.73m2 *Relative to young adult level Estimated glomerular filtration rate is determined by the 2020 CKD-EPI equation recommended by the National Kidney Foundation (A Unifying Approach to GFR Estimation: Recommendations of the NKF-ASK Task Force on Reassessing the Inclusion of Race in Diagnosing Kidney Disease, JASN 2020). The CKD-EPI equation should not be used for patients with unstable renal function and has not been validated in children and those over 70. Current interpretive data was last reviewed 2021. Blood 06/19/2025 5:56 AM CDT 06/19/2025 6:24 AM CDT us Narcisa Horan MD LAB BLOOD ORDERABLES Final Result [facility] [place] [address] * Thyroid Function [place] (06/19/2025 5:56 AM CDT) Pathologist [facility] TSH 3.00 0.30 - 4.20 mcIUnit/mL Blood 06/19/2025 5:56 AM CDT 06/19/2025 6:24 AM CDT us Ashlee Nelson MD LAB BLOOD ORDER JENIFER Final Result Performing Organization Address City/[facility]/ZIP Co de Phone Number [facility] Department [place] [address] * (ABNORMAL) Basic metabolic panel (06/19/2025 5:56 AM CDT) Sodium 142 135 - 145 mmol/L Potassium, pl 5.2(H) 3.3 - 4.9 mmol/L [facility] Chloride 108 97 - 110 mmol/L [facility] CO2 26 22 - 32 mmol/L [facility] Anion gap 8 2 - 15 mmol/L [facility] BUN 28(H) 6 - 25 mg/dL [facility] Creatinine 1.89(H) 0.60 - 1.10 mg/dL [facility] Glucose 123 70 - 199 mg/dL [facility] Comment: Interpretive Data Fasting glucose >/= 126 mg/dl is diagnostic for diabetes. Fasting is defined as no caloric intake for at least 8 hours. Fasting glucose between 100 mg/dl to 125 mg/dl is diagnostic of prediabetes. In a patient with classic symptoms of hyperglycemia or hyperglycemic crisis, a random glucose >/= 200 mg/dl is diagnostic for diabetes. In the absence of unequivocal hyperglycemia, results should be confirmed by repeat testing. The classification and Diagnosis of Diabetes Diabetes Care 2021; 46: S19-S40. Current interpretive data was last revised 2022. Calcium 8.9 8.5 - 10.3 mg/dL [facility] Blood 06/19/2025 5:56 AM CDT 06/19/2025 6:24 AM CDT Narcisa Horan MD LAB BLOOD ORDERABLES Final Result [facility] [place] [address] * (ABNORMAL) Potassium (06/18/2025 9:10 PM CDT) Potassium, pl 5.3(H) 3.3 - 4.9 mmol/L Blood 06/18/2025 9:10 PM CDT 06/18/2025 9:46 PM CDT Celi Morgan MD LAB BLOOD ORDERABLE S Final Result Performing Organization Address [facility] Co de Phone Number [facility] [place] [address] * (ABNORMAL) Potassium (06/18/2025 5:44 PM CDT) Potassium, pl 5.0(H) 3.3 - 4.9 mmol/L Blood 06/18/2025 5:44 PM CDT 06/18/2025 6:08 PM CDT us Celi Morgan MD LAB BLOOD ORDERABLE S Final Result Performing Organization Address [facility] Co de Phone Number [facility] [place] [address] * POCT glucose (06/18/2025 5:41 PM CDT) Glucose, POC 148 70 - 199 mg/dL Blood 06/18/2025 5:41 PM CDT 06/18/2025 5:41 PM CDT us Olga Mancia MD LAB POCT ORDERABLES - DEV ICE Final Result Performing Organization Address [facility] Co de Phone Number [facility] [place] [address] * ECG 12-LEAD (06/18/2025 4:12 PM CDT) Narrative [facility] - 06/18/2025 4:12 PM CDT Rashad Sy MD 06/18/2025 4:13 PM ECG 12 lead Date/Time: 06/18/2025 4:12 PM Performed by: Rashad Sy MD Authorized by: Celi Morgan MD Comments: Electrocardiogram from 3:50 p.m. to manifest sinus rhythm with frequent premature ventricular complexes, rate of 78; normal CA, prolonged QRS 0.114, normal QTC intervals; normal P, leftward are, rightward T-wave axis; no evidence of atrial enlargement or ventricular hypertrophy; ST segments and T-waves notable for T-wave inversion in limb leads 1 and aVL consistent with June 04, 2025. Celi Morgan MD ECG ORDERABLES Fin al Result [facility] * (ABNORMAL) Pro B-type natriuretic peptide (06/18/2025 3:38 PM CDT) NT-proBNP 2,001(H) <=450 pg/mL Comment: Interpretive Comments: A. Dyspnea in Acute Care Setting All Ages: < 300 pg/ml, acute heart failure unlikely. < 50 yrs: 300 - 450 pg/ml, further investigation warranted. > 450 pg/ml, acute heart failure likely. 50 - 74 yrs: 300 - 900 pg/ml, further investigation warranted. > 900 pg/ml, acute heart failure likely . > or = 75 yrs: 450 - 1800 pg/ml, further investigation warranted. > 1800 pg/ml, acute heart failure likely. B. Non-acute Setting < 75 yrs < 125 pg/ml, rules out heart failure. > or = 125 pg/ml, further investigation warranted. > or = 75 yrs < 450 pg/ml, rules out heart failure. > or = 450 pg/ml, further investigation warranted. - Knowledge of each individual patient's NT-proBNP range may be more useful than using similar cut-points for every patient. Please note that marked elevations in NT-proBNP levels may be observed in state other than Left Ventricular Congestive Failure, including: acute coronary syndromes, right heart strain/failure (including pulmonary embolism and cor pulmonale), critical illness, renal failure, as well as advanced age. - References: 1. Anjel LÓPEZ et.al. Eur Heart J. 2006:27:330-337. 2. Earlene BEAR, Charlee NOBLE. J. AM Suri Cardiol: Cardiovasc Imag. 2009;2: 216- 225. Interpretive Data Last Revised Date: 2018. Blood 06/18/2025 3:38 PM CDT 06/18/2025 3:50 PM CDT Celi Morgan MD LAB BLOOD ORDERABLE S Final Result [facility] [place] [address] * Respiratory pathogen panel Nasopharyngeal (06/18/2025 3:38 PM CDT) Pathologist [facility] Influenza A RNA Not Detected Not Detected Influenza B RNA Not Detected Not Detected [facility] RSV RNA Not Detected Not Detected [facility] COVID-19 RNA Not Detected Not Detected [facility] Coronavirus 229E RNA Not Detected Not Detected [facility] Coronavirus HKU1 RNA Not Detected Not Detected [facility] Coronavirus NL63 RNA Not Detected Not Detected [facility] Coronavirus OC43 RNA Not Detected Not Detected [facility] Adenovirus DNA Not Detected Not Detected [facility] Metapneumovirus RNA Not Detected Not Detected [facility] Rhinovirus/Enterov irus RNA Not Detected Not Detected [facility] Parainfluenza 1 RNA Not Detected Not Detected [facility] Parainfluenza 2 RNA Not Detected Not Detected [facility] Parainfluenza 3 RNA Not Detected Not Detected [facility] Parainfluenza 4 RNA Not Detected Not Detected [facility] B. pertussis DNA Not Detected Not Detected [facility] B. parapertussis DNA Not Detected Not Detected [facility] C. pneumoniae DNA Not Detected Not Detected [facility] M. pneumoniae DNA Not Detected Not Detected [facility] Nasopharyngeal 06/18/2025 3: 38 PM CDT 06/18/2025 4:07 PM CDT Narrative [facility] - 06/18/2025 5:22 PM CDT Is the Patient experiencing symptoms consistent with COVID?->Yes Surveillance testing for transplant patient?->No Interpretive Data The [employer] FilmArray Respiratory Panel (RP2.1) assay is a multiplexed real-time PCR based nucleic acid test capable of simultaneous qualitative detection and identification of multiple respiratory viral and bacterial nucleic acids, including SARS Coronavirus 2 (the causative agent of COVID-19). The following bacteria, viruses and virus subtypes can be identified using the FilmArray RP2.1 assay: Bordetella pertussis, Bordetella parapertussis, Chlamydia pneumoniae, Mycoplasma pneumoniae, Adenovirus, SARS Coronavirus 2, seasonal coronaviruses (Coronavirus HKU1, Coronavirus NL63, Coronavirus 229E, and Coronavirus OC43), Influenza A, Influenza A subtype H1, Influenza A subtype H3, Influenza A subtype 2009 H1, Influenza B, Metapneumovirus, Parainfluenza 1, Parainfluenza 2, Parainfluenza 3, Parainfluenza 4, RSV, Rhinovirus/Enterovirus. Due to the genetic similarity between human Rhinovirus and Enterovirus, the FilmArray RP2.1 assay cannot reliably differentiate them. Coronavirus OC43 may cross-react with some isolates of Coronavirus HKU1. A dual positive result may be due to cross-reactivity or may indicate a co- infection. The detection and identification of specific viral and bacterial nucleic acids from individuals exhibiting signs and symptoms of a respiratory infection aids in the diagnosis of respiratory infection if used in conjunction with other clinical and epidemiological information. The results of this test should not be used as the sole basis for diagnosis, treatment, or other management decisions. Negative results in the setting of a respiratory illness may be due to infection with pathogens that are not detected by this test. Positive results do not rule out infection/co-infection with other organisms. The agent(s) detected by the FilmArray RP2.1 may not be the definite cause of disease. Additional testing (lab, imaging, etc.) may be necessary when evaluating a patient with possible respiratory tract infection. The FilmArray RP2.1 assay has FDA clearance for testing of SNACK STEWARDESS swabs. The performance of additional specimen types has been assessed by the performing laboratory. The performance characteristics of this assay have been determined by [facility] Molecular Infectious Disease Laboratory. Current interpretive data was last revised on 22. Celi Morgan MD LAB MICROBIOLOGY - GENERAL ORDERABLES Final Result [facility] [place] [address] * POCT glucose (06/18/2025 3:36 PM CDT) Glucose, POC 125 70 - 199 mg/dL Blood 06/18/2025 3:36 PM CDT 06/18/2025 3:36 PM CDT Nicolas Espinosa MD LAB POCT ORDERABL ES - DEVICE Final Result Performing Organization Address [facility] Co de Phone Number [facility] [place] [address] * POCT glucose (06/18/2025 2:12 PM CDT) Glucose, POC 114 70 - 199 mg/dL Blood 06/18/2025 2:12 PM CDT 06/18/2025 2:12 PM CDT Result [facility] Nicolas Espinosa MD LAB POCT ORDERABL ES - DEVICE Final Result Performing Organization Address [facility] de Phone Number [facility] [place] [employer] [place] [address] * Troponin I high-sensitivity 2-hour (06/18/2025 1:47 PM CDT) Trop I hs 12 <=17 ng/L Comment: Interpretive Data For further hscTnI resources including the diagnostic algorithm and an aid in interpretation, copy and paste this link: https://bjhlab.testcatalog.org/show/hsTrop-1 Current Interpretive Data last revised 2020. Trop I hs delta See Comment ng/L [facility] Comment:Inappropriate collec tion time to report a delta. Trop I hs pct delta See Comment % [facility] Comment:Inappropriate collec tion time to report a delta. Trop I hs interp See Comment [facility] Comment:Inappropriate collec tion time to report a delta. Blood 06/18/2025 1:47 PM CDT 06/18/2025 1:53 PM CDT Nicolas Espinosa MD LAB BLOOD ORDERAB LES Final Result Performing Organization Address [facility] [place] [address] * Critical Result Callback Chemistry (06/18/2025 1:47 PM CDT) Date Notified [id number] Time Notified 14:40 KYLEE CALHOUN TestName Potassium Plas [facility] Called/Read Back Celi CALHOUN Credentials MD [facility] Called By [facility] KYLEE CALHOUN Blood 06/18/2025 1:47 PM CDT 06/18/2025 2:12 PM CDT Celi Morgan MD LAB BLOOD ORDERABLE S Final Result Performing Organization Address [facility] Co de Phone Number [facility] [place] [address] * (ABNORMAL) Potassium (06/18/2025 1:47 PM CDT) Pathologist [facility] Potassium, pl 6.4(C) 3.3 - 4.9 mmol/L Blood 06/18/2025 1:47 PM CDT 06/18/2025 1:53 PM CDT Celi Morgan MD LAB BLOOD ORDERABLE S Final Result Performing Organization Address [facility] [place] [address] * Troponin I high-sensitivity series (baseline, 2hr, 4hr, 6hr) (06/18/2025 12:34 PM CDT) Trop I hs 13 <=17 ng/L Comment: Interpretive Data For further hscTnI resources including the diagnostic algorithm and an aid in interpretation, copy and paste this link: https://bjhlab.testcatalog.org/show/hsTrop-1 Current Interpretive Data last revised 2020. Blood 06/18/2025 12:3 4 PM CDT 06/18/2025 12:56 PM CDT us Nicolas Espinosa MD LAB BLOOD ORDERAB LES Final Result [facility] [place] [employer] [place] [address] * (ABNORMAL) eGFR (06/18/2025 12:34 PM CDT) [facility] eGFR 26(L) >=60 mL/min/1. 73 m2 Comment: Interpretive Data Reference Interval Normal >/= 90 mL/min/1.73m2 Mildly decreased* 60 - 89 mL/min/1.73m2 Mildly to moderately decreased 45 - 59 mL/min/1.73m2 Moderately to severely decreased 30 - 44 mL/min/1.73m2 Severely decreased 15 - 29 mL/min/1.73m2 Kidney Failure < 15 mL/min/1.73m2 *Relative to young adult level Estimated glomerular filtration rate is determined by the 2020 CKD-EPI equation recommended by the National Kidney Foundation (A Unifying Approach to GFR Estimation: Recommendations of the NKF-ASK Task Force on Reassessing the Inclusion of Race in Diagnosing Kidney Disease, JASN 202). The CKD-EPI equation should not be used for patients with unstable renal function and has not been validated in children and those over 70. Current interpretive data was last reviewed 2021. Blood 06/18/2025 12:3 4 PM CDT 06/18/2025 12:57 PM CDT us Nicolas Espinosa MD LAB BLOOD ORDERAB LES Final [facility] [place] [address] * (ABNORMAL) Differential, auto (06/18/2025 12:34 PM CDT) Pathologist [facility] Neutrophil abs 7.67(H) 1.50 - 6.50 K/cumm Imm gran abs 0.04 0.00 - 0.10 K/cumm [facility] Lymphocyte abs 3.63(H) 0.80 - 3.30 K/cumm [facility] Monocyte abs 0.71 0.20 - 0.80 K/cumm [facility] Eosinophil abs 0.34 0.00 - 0.50 K/cumm [facility] Basophil abs 0.06 0.00 - 0.10 K/cumm [facility] Neutrophil pct 61.6 % [facility] Comment: Interpretive Data Percent cell count reference ranges are not reported, since discordance with absolute values may lead to misinterpretation of CBC data. Current Interpretive Data was last revised on 2018. Imm gran pct 0.3 % [facility] Comment: Interpretive Data Percent cell count reference ranges are not reported, since discordance with absolute values may lead to misinterpretation of CBC data. Current Interpretive Data was last revised on 2018. Lymphocyte pct 29.2 % [facility] Comment: Interpretive Data Percent cell count reference ranges are not reported, since discordance with absolute values may lead to misinterpretation of CBC data. Current Interpretive Data was last revised on 2018. Monocyte pct 5.7 % [facility] Comment: Interpretive Data Percent cell count reference ranges are not reported, since discordance with absolute values may lead to misinterpretation of CBC data. Current Interpretive Data was last revised on 2018. Eosinophil pct 2.7 % [facility] Comment: Interpretive Data Percent cell count reference ranges are not reported, since discordance with absolute values may lead to misinterpretation of CBC data. Current Interpretive Data was last revised on 2018. Basophil pct 0.5 % [facility] Comment: Interpretive Data Percent cell count reference ranges are not reported, since discordance with absolute values may lead to misinterpretation of CBC data. Current Interpretive Data was last revised on 2018. Blood 06/18/2025 12:3 4 PM CDT 06/18/2025 12:56 PM CDT Nicolas Espinosa MD LAB BLOOD ORDERAB LES Final Result Performing Organization Address City/[facility]/[place] [address] * Critical Result Callback Chemistry (06/18/2025 12:34 PM CDT) Date Notified [id number] Time Notified 13:27 [facility] TestName Potassium Plas [facility] Called/Read Back Celi PICHARDO [facility] Credentials MD PICHARDO [facility] Blood 06/18/2025 12:3 4 PM CDT 06/18/2025 12:57 PM CDT us Nicolas Espinosa MD LAB BLOOD ORDERAB LES Final Result Performing Organization Address [facility] Co de Phone Number [facility] [place] [address] * (ABNORMAL) CBC with auto differential (06/18/2025 12:34 PM CDT) [facility] WBC 12.45(H) 3.80 - 9.90 K/cumm Hgb 13.1 11.9 - 15.5 g/dL [facility] Hct 43.9 35.6 - 45.5 % [facility] Plt 236 150 - 400 K/cumm [facility] MPV 12.5(H) 9.1 - 12.3 fL [facility] RBC 4.76 3.90 - 5.20 M/cumm [facility] MCV 92.2 81.3 - 96.4 fL [facility] MCH 27.5 27.1 - 33.3 pg [facility] MCHC 29.8(L) 32.3 - 35.7 g/dL [facility] RDW CV 14.4 11.1 - 14.9 % [facility] RDW SD 48.5(H) 35.7 - 48.1 fL [facility] NRBC abs 0.00 0.00 - 0.01 K/cumm [facility] Blood 06/18/2025 12:3 4 PM CDT 06/18/2025 12:56 PM CDT us Nicolas Espinosa MD LAB BLOOD ORDERAB LES Final Result Performing Organization Address [facility] de Phone Number [facility] [place] [address] * (ABNORMAL) Hemoglobin A1c (06/18/2025 12:34 PM CDT) Hgb A1C 7.2(H) 4.0 - 5.6 % Estimated Average Glucose 160 mg/dL [facility] Comment: The ADA recommends reporting an estimated Average Glucose (eAG) with all Hemoglobin A1c results using the equation derived from a study of 507 normal and diabetic adults. Minority populations were underrepresented and children were not included. (Diabetes Care 2020; 43(S1): S66-S76). The eAG is not equivalent to a fasting glucose. Blood 06/18/2025 12:3 4 PM CDT 06/18/2025 1:03 PM CDT us Ashlee Nelson MD LAB BLOOD ORDER JENIFER Final Result Performing Organization Address [facility] de Phone Number [facility] [place] [address] * (ABNORMAL) Lipid panel (06/18/2025 12:34 PM CDT) Cholesterol 87 30 - 199 mg/dL Comment: Interpretive Data Ages < or = 19 years Acceptable: <170 mg/dL Borderline high: 170-199 mg/dL High: >or= 200 mg/dL Ages > or = 20 years Desirable: <200 mg/dL Borderline high: 200-239 mg/dL High: >or= 240 mg/dL Literature References: 1. Expert Panel on Integrated Guidelines for Cardiovascular Health and Risk Reduction in Children and Adolescents. Pediatrics 2011;128:S213 2. NCEP Expert Panel. Circulation 2004;110:227 Current Interpretive Data was last revised on 2018. Triglycerides 111 <=149 mg/dL [facility] Comment: Interpretive Data Ages < or = 9 years Acceptable: <75 mg/dL Borderline high: 75-99 mg/dL High: >or= 100 mg/dL Ages 10 to 20 years Acceptable: <90 mg/dL Borderline high: 90-129 mg/dL High: >or= 130 mg/dL Ages > or = 20 years Desirable: <150 mg/dL Borderline high: 150-199 mg/dL High: 200-499 mg/dL Very high: >or= 499 mg/dL Literature References: 1. Expert Panel on Integrated Guidelines for Cardiovascular Health and Risk Reduction in Children and Adolescents. Pediatrics 2011;128:S213 2. NCEP Expert Panel. Circulation 2004;110:227 Current Interpretive Data was last revised on 2018. HDL 29(L) >=40 mg/dL [facility] Comment: Interpretive Data Ages < or = 19 years Acceptable: >45 mg/dL Borderline low: 40-45 mg/dL Low: <40 mg/dL Ages > or = 20 years Desirable: >or= 60 mg/dL Low: <40 mg/dL Literature References: 1. Expert Panel on Integrated Guidelines for Cardiovascular Health and Risk Reduction in Children and Adolescents. Pediatrics 2011;128:S213 2. NCEP Expert Panel. Circulation 2004;110:227 Current Interpretive Data was last revised on 2018. LDL, calculated 37 <=129 mg/dL [facility] Comment: Interpretive Data Ages < or = 19 years Acceptable: <110 mg/dL Borderline high: 110-129 mg/dL High: >or= 130 mg/dL Ages > or = 20 years Optimal: <100 mg/dL Near optimal: 100-129 mg/dL Borderline high: 130-159 mg/dL High: >160 mg/dL Calculated using the Jules LDL-C estimating equation. This equation was implemented on 2024. Prior to this date LDL-C was estimated using the Friedewald equation. Literature References: 1. Expert Panel on Integrated Guidelines for Cardiovascular Health and Risk Reduction in Children and Adolescents. Pediatrics 2011;128:S213 2. NCEP Expert Panel. Circulation 2004;110:227 3. Jules Pandey et al. NASH Cardiol. 2019January 28;5(5):540-548. doi: 10.1001/jamacardio.2020.0013 Current Interpretive Data was last revised on 2024. Non-HDL Cholesterol 58 mg/dL [facility] Comment: Interpretive Data Ages < or = 19 years Acceptable: <120 mg/dL Borderline high: 120-144 mg/dL High: >145 mg/dL Ages > or = 20 years When triglycerides are >200 mg/dL, Non-HDL cholesterol is a secondary target of therapy with treatment goals that are 30 mg/dL greater than the LDL cholesterol target. Literature References: 1. Expert Panel on Integrated Guidelines for Cardiovascular Health and Risk Reduction in Children and Adolescents. Pediatrics 2011;128:S213 2. NCEP Expert Panel. Circulation 2004;110:227 Current Interpretive Data was last revised on 2018. Chol/HDL ratio 3 [facility] Blood 06/18/2025 12:3 4 PM CDT 06/18/2025 12:57 PM CDT Narrative [facility] - 06/19/2025 12:21 AM CDT Reflex us Olga Mancia MD LAB BLOOD ORDERABLES Zulma l Result [facility] [place] [address] * (ABNORMAL) Comprehensive metabolic panel (06/18/2025 12:34 PM CDT) Sodium 141 135 - 145 mmol/L Potassium, pl 6.5(C) 3.3 - 4.9 mmol/L [facility] Chloride 108 97 - 110 mmol/L [facility] CO2 28 22 - 32 mmol/L [facility] Anion gap 5 2 - 15 mmol/L [facility] BUN 30(H) 6 - 25 mg/dL [facility] Creatinine 1.86(H) 0.60 - 1.10 mg/dL [facility] Glucose 130 70 - 199 mg/dL [facility] Comment: Interpretive Data Fasting glucose >/= 126 mg/dl is diagnostic for diabetes. Fasting is defined as no caloric intake for at least 8 hours. Fasting glucose between 100 mg/dl to 125 mg/dl is diagnostic of prediabetes. In a patient with classic symptoms of hyperglycemia or hyperglycemic crisis, a random glucose >/= 200 mg/dl is diagnostic for diabetes. In the absence of unequivocal hyperglycemia, results should be confirmed by repeat testing. The classification and Diagnosis of Diabetes Diabetes Care 2021; 46: S19-S40. Current interpretive data was last revised 2022. Calcium 9.2 8.5 - 10.3 mg/dL [facility] Bilirubin, total 0.6 0.1 - 1.2 mg/dL [facility] Protein, pl 7.5 6.5 - 8.5 g/dL [facility] Albumin 3.4(L) 3.5 - 5.0 g/dL [facility] Alk phos 74 40 - 130 Units/L [facility] ALT 14 7 - 45 Units/L [facility] AST 17 10 - 45 Units/L [facility] Blood 06/18/2025 12:3 4 PM CDT 06/18/2025 12:57 PM CDT us Nicolas Espinosa MD LAB BLOOD ORDERAB LES Final Result [facility] [place] [address] * XR Chest 1 View (06/18/2025 11:09 AM CDT) Anatomical Region Laterality Modality Body, Chest N/A Computed Radiogr aphy 06/18/2025 11:2 4 AM CDT Impressions 06/18/2025 11:27 AM CDT Comparison is made to multiple prior chest radiographs, most recently 06/04/2025. Bibasilar streaky opacities, likely atelectasis. No mass or focal consolidation. No pleural effusion, pulmonary edema, or pneumothorax. Normal cardiomediastinal silhouette. Posterior cervical spinal instrumentation. Dictated by: Eryn Vences M.D. The radiology attending physician has personally reviewed this study, and had reviewed and/or edited this written report and agrees with it. Electronically signed by: Doug Miller M.D. Narrative 06/18/2025 11:27 AM CDT EXAMINATION: 1 view chest radiograph Procedure Note Doug Miller MD - 06/18/2025 EXAMINATION: 1 view chest radiograph IMPRESSION: Comparison is made to multiple prior chest radiographs, most recently 06/04/2025. Bibasilar streaky opacities, likely atelectasis. No mass or focal consolidation. No pleural effusion, pulmonary edema, or pneumothorax. Normal cardiomediastinal silhouette. Posterior cervical spinal instrumentation. Dictated by: Eryn Vences M.D. The radiology attending physician has personally reviewed this study, and had reviewed and/or edited this written report and agrees with it. Electronically signed by: Doug Miller M.D. Nicolas Espinosa MD IMG XR PROCEDURES Final Result * ECG 12-LEAD (06/18/2025 10:59 AM CDT) Narrative [facility] 06/18/2025 10:59 AM CDT Shane Abad MD 06/18/2025 11:00 AM ECG 12 lead Date/Time: 06/18/2025 10:59 AM Performed by: Shane Abad MD Authorized by: Nicolas Espinosa MD Rate: ECG rate: 63 ECG rate assessment: normal Rhythm: Rhythm: sinus rhythm Ectopy: Ectopy: PAC QRS: QRS axis: Left QRS intervals: Wide Conduction: Conduction: abnormal Abnormal conduction: complete LBBB ST segments: ST segments: Non-specific T waves: T waves: non-specific Previous ECG: Previous ECG: Compared to current Date of previous EC06/04/2025 Similarity: No change Interpretation: Interpretation: No significant change Recommended Follow-up: Recommended follow up: further workup in the ED us Nicolas Espinosa MD ECG ORDERABLES F inal Result [facility] * POCT glucose (06/18/2025 10:48 AM CDT) Glucose, POC 139 70 - 199 mg/dL Blood 06/18/2025 10:4 8 AM CDT 06/18/2025 10:48 AM CDT Notinfile Unknown LAB POCT ORDERABLES - DEVICE F inal Result Performing Organization Address City/[facility]/ZIP Co de Phone Number KYLEE CALHOUN [facility] [place] [address] * Vitamin D 25 hydroxy (06/09/2025 8:44 AM CDT) [facility] Vitamin D 25-OH 36.0 30.0 - 80.0 ng/mL Blood 06/09/2025 8:44 AM CDT 06/09/2025 9:00 AM CDT Cade Masterson MD LAB BLOOD ORDERABLES F inal Result Performing Organization Address [facility] Co de Phone Number [address] [employer] [place] [address] * Magnesium (06/09/2025 8:44 AM CDT) [facility] Magnesium 2.3 1.4 - 2.5 mg/dL Blood 06/09/2025 8:44 AM CDT 06/09/2025 9:00 AM CDT Cade Masterson MD LAB BLOOD ORDERABLES F inal Result Performing Organization Address [facility] Co de Phone Number [address] [place] [address] * (ABNORMAL) eGFR (06/08/2025 2:31 AM CDT) [facility] eGFR 36(L) >=60 mL/min/1. 73 m2 Comment: Interpretive Data Reference Interval Normal >/= 90 mL/min/1.73m2 Mildly decreased* 60 - 89 mL/min/1.73m2 Mildly to moderately decreased 45 - 59 mL/min/1.73m2 Moderately to severely decreased 30 - 44 mL/min/1.73m2 Severely decreased 15 - 29 mL/min/1.73m2 Kidney Failure < 15 mL/min/1.73m2 *Relative to young adult level Estimated glomerular filtration rate is determined by the 2020 CKD-EPI equation recommended by the National Kidney Foundation (A Unifying Approach to GFR Estimation: Recommendations of the NKF-ASK Task Force on Reassessing the Inclusion of Race in Diagnosing Kidney Disease, JASN 2020). The CKD-EPI equation should not be used for patients with unstable renal function and has not been validated in children and those over 70. Current interpretive data was last reviewed 2021. Blood 06/08/2025 2:31 AM CDT 06/08/2025 2:51 AM CDT us Oj Hays MD LAB BLOOD ORDERABLES Final Resul t [place] [id number] [facility] Department of Laboratories [place], [place] [id number] * Differential, auto (06/08/2025 2:31 AM CDT) Neutrophil abs 5.37 1.50 - 6.50 K/cumm Imm gran abs 0.03 0.00 - 0.10 K/cumm [facility] Lymphocyte abs 2.98 0.80 - 3.30 K/cumm [facility] Monocyte abs 0.77 0.20 - 0.80 K/cumm [facility] Eosinophil abs 0.43 0.00 - 0.50 K/cumm [facility] Basophil abs 0.05 0.00 - 0.10 K/cumm [facility] Neutrophil pct 55.8 % [facility] Comment: Interpretive Data Percent cell count reference ranges are not reported, since discordance with absolute values may lead to misinterpretation of CBC data. Current Interpretive Data was last revised on 2018. Imm gran pct 0.3 % [facility] Comment: Interpretive Data Percent cell count reference ranges are not reported, since discordance with absolute values may lead to misinterpretation of CBC data. Current Interpretive Data was last revised on 2018. Lymphocyte pct 30.9 % [facility] Comment: Interpretive Data Percent cell count reference ranges are not reported, since discordance with absolute values may lead to misinterpretation of CBC data. Current Interpretive Data was last revised on 2018. Monocyte pct 8.0 % [facility] Comment: Interpretive Data Percent cell count reference ranges are not reported, since discordance with absolute values may lead to misinterpretation of CBC data. Current Interpretive Data was last revised on 2018. Eosinophil pct 4.5 % [facility] Comment: Interpretive Data Percent cell count reference ranges are not reported, since discordance with absolute values may lead to misinterpretation of CBC data. Current Interpretive Data was last revised on 2018. Basophil pct 0.5 % [facility] Comment: Interpretive Data Percent cell count reference ranges are not reported, since discordance with absolute values may lead to misinterpretation of CBC data. Current Interpretive Data was last revised on 2018. Blood 06/08/2025 2:31 AM CDT 06/08/2025 2:51 AM CDT us Oj Hays MD LAB BLOOD ORDERABLES Final Resul t [facility] [address] [facility] Department [place] [address] * (ABNORMAL) CBC with auto differential (06/08/2025 2:31 AM CDT) WBC 9.63 3.80 - 9.90 K/cumm Hgb 12.1 11.9 - 15.5 g/dL [facility] Hct 40.4 35.6 - 45.5 % [facility] Plt 196 150 - 400 K/cumm [facility] MPV 12.5(H) 9.1 - 12.3 fL [facility] RBC 4.38 3.90 - 5.20 M/cumm [facility] MCV 92.2 81.3 - 96.4 fL [facility] MCH 27.6 27.1 - 33.3 pg [facility] MCHC 30.0(L) 32.3 - 35.7 g/dL [facility] RDW CV 13.8 11.1 - 14.9 % [facility] RDW SD 47.0 35.7 - 48.1 fL [facility] NRBC abs 0.00 0.00 - 0.01 K/cumm [facility] Blood 06/08/2025 2:31 AM CDT 06/08/2025 2:51 AM CDT Oj Hays MD LAB BLOOD ORDERABLES Final Resul t [facility] [address] [facility] Department [place] [address] * Blood culture Blood (06/08/2025 2:31 AM CDT) Report Final Report: No growth Comment:Testing performed by : [facility], [address] [place] [address] Blood 06/08/2025 2:31 AM CDT 06/08/2025 7:49 AM CDT Narrative [facility] - 06/12/2025 12:00 PM CDT From a different site than #1. Collection->Peripheral 1. Blood cultures are incubated for 4 days on a continuously monitored blood culture system. The first report of a negative culture is issued within 24 hours of receipt of the specimen in the laboratory. 2. Positive culture results are reported as soon as they are detected. 3. The most important factor for detection of microbes in the setting of bloodstream infection is the volume of blood submitted for culture. Failure to collect an optimal blood volume can result in false negative blood cultures. 4. For pediatric patients, the recommended blood volume to collect follows a weight based strategy. See the electronic test catalog for collection instructions. 5. For positive blood cultures, a rapid molecular test may be performed for organism identification using the anna ePlex blood culture identification panel for gram positive (BCID-GP) and gram negative (BCID-GN) organisms. This nucleic acid amplification test detects microbial DNA in positive blood culture broth. This assay has been cleared by the [place] Food and Drug Administration and its performance characteristics have been verified by the [facility] Microbiology Laboratory. For questions about this culture, contact the Microbiology Laboratory at [phone]. Interpretive data was last revised on 24. us Emiliano Ochoa MD LAB MICROBIOLO GY - GENERAL ORDERABLES Final Result [facility] [address] [facility] [place] [address] * (ABNORMAL) Basic metabolic panel (06/08/2025 2:31 AM CDT) Sodium 144 135 - 145 mmol/L Potassium, pl 4.2 3.3 - 4.9 mmol/L [facility] Chloride 107 97 - 110 mmol/L [facility] CO2 26 22 - 32 mmol/L [facility] Anion gap 11 2 - 15 mmol/L [facility] BUN 26(H) 6 - 25 mg/dL [facility] Creatinine 1.39(H) 0.60 - 1.10 mg/dL [facility] Glucose 116 70 - 199 mg/dL [facility] Comment: Interpretive Data Fasting glucose >/= 126 mg/dl is diagnostic for diabetes. Fasting is defined as no caloric intake for at least 8 hours. Fasting glucose between 100 mg/dl to 125 mg/dl is diagnostic of prediabetes. In a patient with classic symptoms of hyperglycemia or hyperglycemic crisis, a random glucose >/= 200 mg/dl is diagnostic for diabetes. In the absence of unequivocal hyperglycemia, results should be confirmed by repeat testing. The classification and Diagnosis of Diabetes Diabetes Care 202; 46: S19-S40. Current interpretive data was last revised 2022. Calcium 9.1 8.5 - 10.3 mg/dL [facility] Blood 06/08/2025 2:31 AM CDT 06/08/2025 2:51 AM CDT us Oj Hays MD LAB BLOOD ORDERABLES Final Resul t [facility] [address] [facility] Department [place] [address] * Blood culture Blood (06/07/2025 1:26 PM CDT) Report Final Report: No growth Comment:Testing performed by : [facility], [address] [facility], [place]., [address] Blood 06/07/2025 1:26 PM CDT 06/07/2025 4:00 PM CDT Narrative KYLEE ROMAN - 06/12/2025 7:00 AM CDT Collection->Peripheral 1. Blood cultures are incubated for 4 days on a continuously monitored blood culture system. The first report of a negative culture is issued within 24 hours of receipt of the specimen in the laboratory. 2. Positive culture results are reported as soon as they are detected. 3. The most important factor for detection of microbes in the setting of bloodstream infection is the volume of blood submitted for culture. Failure to collect an optimal blood volume can result in false negative blood cultures. 4. For pediatric patients, the recommended blood volume to collect follows a weight based strategy. See the electronic test catalog for collection instructions. 5. For positive blood cultures, a rapid molecular test may be performed for organism identification using the anna ePlex blood culture identification panel for gram positive (BCID-GP) and gram negative (BCID-GN) organisms. This nucleic acid amplification test detects microbial DNA in positive blood culture broth. This assay has been cleared by the [place] Food and Drug Administration and its performance characteristics have been verified by the [facility] Microbiology Laboratory. For questions about this culture, contact the Microbiology Laboratory at [phone]. Interpretive data was last revised on 24. us Emiliano Ochoa MD LAB MICROBIOLO GY - GENERAL ORDERABLES Final Result [facility] ROMAN [address] [facility] Department [place] [address] * Vancomycin level random (06/07/2025 10:47 AM CDT) Vancomycin random 16.7 mcg/mL Comment: Interpretive Data No reference ranges have been established for random drug levels. Current Interpretive Data was last revised on 2021. Blood 06/07/2025 10:4 7 AM CDT 06/07/2025 11:05 AM CDT us Emiliano Ochoa MD LAB BLOOD LUCINA GENTILE Final Result Performing Organization Address City/[facility]/ZIP Co de Phone Number KYLEE [address] [address] * (ABNORMAL) eGFR (06/07/2025 4:40 AM CDT) Pathologist [facility] eGFR 35(L) >=60 mL/min/1. 73 m2 Comment: Interpretive Data Reference Interval Normal >/= 90 mL/min/1.73m2 Mildly decreased* 60 - 89 mL/min/1.73m2 Mildly to moderately decreased 45 - 59 mL/min/1.73m2 Moderately to severely decreased 30 - 44 mL/min/1.73m2 Severely decreased 15 - 29 mL/min/1.73m2 Kidney Failure < 15 mL/min/1.73m2 *Relative to young adult level Estimated glomerular filtration rate is determined by the 2020 CKD-EPI equation recommended by the National Kidney Foundation (A Unifying Approach to GFR Estimation: Recommendations of the NKF-ASK Task Force on Reassessing the Inclusion of Race in Diagnosing Kidney Disease, JASN 2020). The CKD-EPI equation should not be used for patients with unstable renal function and has not been validated in children and those over 70. Current interpretive data was last reviewed 2021. Blood 06/07/2025 4:40 AM CDT 06/07/2025 5:01 AM CDT us Oj Hays MD LAB BLOOD ORDERABLES Final Resul t Performing Organization Address City/[facility]/ZIP Co de Phone Number KYLEE [address] [place] [address] * (ABNORMAL) Differential, auto (06/07/2025 4:40 AM CDT) Pathologist [facility] Neutrophil abs 5.34 1.50 - 6.50 K/cumm Imm gran abs 0.03 0.00 - 0.10 K/cumm [facility] Lymphocyte abs 2.93 0.80 - 3.30 K/cumm [facility] Monocyte abs 0.93(H) 0.20 - 0.80 K/cumm [facility] Eosinophil abs 0.40 0.00 - 0.50 K/cumm [facility] Basophil abs 0.03 0.00 - 0.10 K/cumm [facility] Neutrophil pct 55.4 % [facility] Comment: Interpretive Data Percent cell count reference ranges are not reported, since discordance with absolute values may lead to misinterpretation of CBC data. Current Interpretive Data was last revised on 2018. Imm gran pct 0.3 % [facility] Comment: Interpretive Data Percent cell count reference ranges are not reported, since discordance with absolute values may lead to misinterpretation of CBC data. Current Interpretive Data was last revised on 2018. Lymphocyte pct 30.3 % [facility] Comment: Interpretive Data Percent cell count reference ranges are not reported, since discordance with absolute values may lead to misinterpretation of CBC data. Current Interpretive Data was last revised on 2018. Monocyte pct 9.6 % [facility] Comment: Interpretive Data Percent cell count reference ranges are not reported, since discordance with absolute values may lead to misinterpretation of CBC data. Current Interpretive Data was last revised on 2018. Eosinophil pct 4.1 % [facility] Comment: Interpretive Data Percent cell count reference ranges are not reported, since discordance with absolute values may lead to misinterpretation of CBC data. Current Interpretive Data was last revised on 2018. Basophil pct 0.3 % [facility] Comment: Interpretive Data Percent cell count reference ranges are not reported, since discordance with absolute values may lead to misinterpretation of CBC data. Current Interpretive Data was last revised on 2018. Blood 06/07/2025 4:40 AM CDT 06/07/2025 5:01 AM CDT us Oj Hays MD LAB BLOOD ORDERABLES Final Resul t KYLEE ROMAN [address] [facility] Department [place] [address] * (ABNORMAL) CBC with auto differential (06/07/2025 4:40 AM CDT) WBC 9.66 3.80 - 9.90 K/cumm Hgb 12.1 11.9 - 15.5 g/dL [facility] Hct 40.8 35.6 - 45.5 % [facility] Plt 206 150 - 400 K/cumm [facility] MPV 12.7(H) 9.1 - 12.3 fL [facility] RBC 4.37 3.90 - 5.20 M/cumm [facility] MCV 93.4 81.3 - 96.4 fL [facility] MCH 27.7 27.1 - 33.3 pg [facility] MCHC 29.7(L) 32.3 - 35.7 g/dL [facility] RDW CV 13.9 11.1 - 14.9 % [facility] RDW SD 47.2 35.7 - 48.1 fL [facility] NRBC abs 0.00 0.00 - 0.01 K/cumm [facility] Blood 06/07/2025 4:40 AM CDT 06/07/2025 5:01 AM CDT Oj Hays MD LAB BLOOD ORDERABLES Final Resul t [facility] [address] [facility] Department [place] [address] * (ABNORMAL) Basic metabolic panel (06/07/2025 4:40 AM CDT) Sodium 143 135 - 145 mmol/L Potassium, pl 4.2 3.3 - 4.9 mmol/L [facility] Chloride 108 97 - 110 mmol/L [facility] CO2 26 22 - 32 mmol/L [facility] Anion gap 9 2 - 15 mmol/L [facility] BUN 24 6 - 25 mg/dL [facility] Creatinine 1.44(H) 0.60 - 1.10 mg/dL [facility] Glucose 103 70 - 199 mg/dL [facility] Comment: Interpretive Data Fasting glucose >/= 126 mg/dl is diagnostic for diabetes. Fasting is defined as no caloric intake for at least 8 hours. Fasting glucose between 100 mg/dl to 125 mg/dl is diagnostic of prediabetes. In a patient with classic symptoms of hyperglycemia or hyperglycemic crisis, a random glucose >/= 200 mg/dl is diagnostic for diabetes. In the absence of unequivocal hyperglycemia, results should be confirmed by repeat testing. The classification and Diagnosis of Diabetes Diabetes Care 202; 46: S19-S40. Current interpretive data was last revised 2022. Calcium 9.1 8.5 - 10.3 mg/dL KYLEE JESSIE Blood 06/07/2025 4:40 AM CDT 06/07/2025 5:01 AM CDT Oj Hays MD LAB BLOOD ORDERABLES Final Resul t Performing Organization Address [facility] Co de Phone Number KYLEE [address] [place] [address] * (ABNORMAL) eGFR (06/06/2025 5:28 AM CDT) eGFR 32(L) >=60 mL/min/1. 73 m2 Comment: Interpretive Data Reference Interval Normal >/= 90 mL/min/1.73m2 Mildly decreased* 60 - 89 mL/min/1.73m2 Mildly to moderately decreased 45 - 59 mL/min/1.73m2 Moderately to severely decreased 30 - 44 mL/min/1.73m2 Severely decreased 15 - 29 mL/min/1.73m2 Kidney Failure < 15 mL/min/1.73m2 *Relative to young adult level Estimated glomerular filtration rate is determined by the 2020 CKD-EPI equation recommended by the National Kidney Foundation (A Unifying Approach to GFR Estimation: Recommendations of the NKF-ASK Task Force on Reassessing the Inclusion of Race in Diagnosing Kidney Disease, JASN 2020). The CKD-EPI equation should not be used for patients with unstable renal function and has not been validated in children and those over 70. Current interpretive data was last reviewed 2021. Blood 06/06/2025 5:28 AM CDT 06/06/2025 5:54 AM CDT us Oj Hays MD LAB BLOOD ORDERABLES Final Resul t Performing Organization Address City/[facility]/ZIP Co de Phone Number KYLEE [address] [place] [address] * (ABNORMAL) Differential, auto (06/06/2025 5:28 AM CDT) Pathologist [facility] Neutrophil abs 5.29 1.50 - 6.50 K/cumm Imm gran abs 0.03 0.00 - 0.10 K/cumm [facility] Lymphocyte abs 2.99 0.80 - 3.30 K/cumm [facility] Monocyte abs 0.82(H) 0.20 - 0.80 K/cumm [facility] Eosinophil abs 0.37 0.00 - 0.50 K/cumm [facility] Basophil abs 0.05 0.00 - 0.10 K/cumm [facility] Neutrophil pct 55.4 % [facility] Comment: Interpretive Data Percent cell count reference ranges are not reported, since discordance with absolute values may lead to misinterpretation of CBC data. Current Interpretive Data was last revised on 2018. Imm gran pct 0.3 % [facility] Comment: Interpretive Data Percent cell count reference ranges are not reported, since discordance with absolute values may lead to misinterpretation of CBC data. Current Interpretive Data was last revised on 2018. Lymphocyte pct 31.3 % [facility] Comment: Interpretive Data Percent cell count reference ranges are not reported, since discordance with absolute values may lead to misinterpretation of CBC data. Current Interpretive Data was last revised on 2018. Monocyte pct 8.6 % [facility] Comment: Interpretive Data Percent cell count reference ranges are not reported, since discordance with absolute values may lead to misinterpretation of CBC data. Current Interpretive Data was last revised on 2018. Eosinophil pct 3.9 % [facility] Comment: Interpretive Data Percent cell count reference ranges are not reported, since discordance with absolute values may lead to misinterpretation of CBC data. Current Interpretive Data was last revised on 2018. Basophil pct 0.5 % [facility] Comment: Interpretive Data Percent cell count reference ranges are not reported, since discordance with absolute values may lead to misinterpretation of CBC data. Current Interpretive Data was last revised on 2018. Blood 06/06/2025 5:28 AM CDT 06/06/2025 5:54 AM CDT us Oj Hays MD LAB BLOOD ORDERABLES Final Resul t Performing Organization Address [facility] de Phone Number KYLEE [address] [place] [address] * (ABNORMAL) CBC with auto differential (06/06/2025 5:28 AM CDT) [facility] WBC 9.55 3.80 - 9.90 K/cumm Hgb 12.6 11.9 - 15.5 g/dL [facility] Hct 41.7 35.6 - 45.5 % [facility] Plt 221 150 - 400 K/cumm [facility] MPV 12.5(H) 9.1 - 12.3 fL [facility] RBC 4.47 3.90 - 5.20 M/cumm [facility] MCV 93.3 81.3 - 96.4 fL [facility] MCH 28.2 27.1 - 33.3 pg [facility] MCHC 30.2(L) 32.3 - 35.7 g/dL [facility] RDW CV 13.8 11.1 - 14.9 % [facility] RDW SD 46.8 35.7 - 48.1 fL [facility] NRBC abs 0.00 0.00 - 0.01 K/cumm [facility] Blood 06/06/2025 5:28 AM CDT 06/06/2025 5:54 AM CDT us Oj Hays MD LAB BLOOD ORDERABLES Final Resul t Performing Organization Address [facility] Co de Phone Number [address] [place] [address] * (ABNORMAL) Basic metabolic panel (06/06/2025 5:28 AM CDT) Pathologist [facility] Sodium 142 135 - 145 mmol/L Potassium, pl 4.2 3.3 - 4.9 mmol/L [facility] Chloride 106 97 - 110 mmol/L [facility] CO2 30 22 - 32 mmol/L [facility] Anion gap 6 2 - 15 mmol/L [facility] BUN 28(H) 6 - 25 mg/dL [facility] Creatinine 1.53(H) 0.60 - 1.10 mg/dL [facility] Glucose 110 70 - 199 mg/dL [facility] Comment: Interpretive Data Fasting glucose >/= 126 mg/dl is diagnostic for diabetes. Fasting is defined as no caloric intake for at least 8 hours. Fasting glucose between 100 mg/dl to 125 mg/dl is diagnostic of prediabetes. In a patient with classic symptoms of hyperglycemia or hyperglycemic crisis, a random glucose >/= 200 mg/dl is diagnostic for diabetes. In the absence of unequivocal hyperglycemia, results should be confirmed by repeat testing. The classification and Diagnosis of Diabetes Diabetes Care 202; 46: S19-S40. Current interpretive data was last revised 2022. Calcium 9.1 8.5 - 10.3 mg/dL [facility] Blood 06/06/2025 5:28 AM CDT 06/06/2025 5:54 AM CDT Oj Hays MD LAB BLOOD ORDERABLES Final Resul t Performing Organization Address [facility] Co de Phone Number [address] [place] [address] * POCT glucose (06/05/2025 12:24 PM CDT) Glucose, POC 150 70 - 199 mg/dL Blood 06/05/2025 12:2 4 PM CDT 06/05/2025 12:24 PM CDT Emiliano Ochoa MD LAB POCT ORDER JENIFER - DEVICE Final Result Performing Organization Address City/[facility] Co de Phone Number [address] [place] [address] * POCT glucose (06/05/2025 8:51 AM CDT) Glucose, POC 97 70 - 199 mg/dL Blood 06/05/2025 8:51 AM CDT 06/05/2025 8:51 AM CDT us Emiliano Ochoa MD LAB POCT ORDER JENIFER - DEVICE Final Result Performing Organization Address [facility] de Phone Number KYLEE [address] [place] [address] * (ABNORMAL) eGFR (06/05/2025 6:43 AM CDT) Pathologist [facility] eGFR 32(L) >=60 mL/min/1. 73 m2 Comment: Interpretive Data Reference Interval Normal >/= 90 mL/min/1.73m2 Mildly decreased* 60 - 89 mL/min/1.73m2 Mildly to moderately decreased 45 - 59 mL/min/1.73m2 Moderately to severely decreased 30 - 44 mL/min/1.73m2 Severely decreased 15 - 29 mL/min/1.73m2 Kidney Failure < 15 mL/min/1.73m2 *Relative to young adult level Estimated glomerular filtration rate is determined by the 2020 CKD-EPI equation recommended by the National Kidney Foundation (A Unifying Approach to GFR Estimation: Recommendations of the NKF-ASK Task Force on Reassessing the Inclusion of Race in Diagnosing Kidney Disease, JASN 2020). The CKD-EPI equation should not be used for patients with unstable renal function and has not been validated in children and those over 70. Current interpretive data was last reviewed 2021. Blood 06/05/2025 6:43 AM CDT 06/05/2025 6:56 AM CDT us Oj Hays MD LAB BLOOD ORDERABLES Final Resul t Performing Organization Address [facility] Co de Phone Number KYLEE [address] Department [place] [address] * Differential, auto (06/05/2025 6:43 AM CDT) Pathologist [facility] Neutrophil abs 5.61 1.50 - 6.50 K/cumm Imm gran abs 0.02 0.00 - 0.10 K/cumm [facility] Lymphocyte abs 2.75 0.80 - 3.30 K/cumm [facility] Monocyte abs 0.80 0.20 - 0.80 K/cumm [facility] Eosinophil abs 0.26 0.00 - 0.50 K/cumm [facility] Basophil abs 0.05 0.00 - 0.10 K/cumm [facility] Neutrophil pct 59.2 % [facility] Comment: Interpretive Data Percent cell count reference ranges are not reported, since discordance with absolute values may lead to misinterpretation of CBC data. Current Interpretive Data was last revised on 2018. Imm gran pct 0.2 % [facility] Comment: Interpretive Data Percent cell count reference ranges are not reported, since discordance with absolute values may lead to misinterpretation of CBC data. Current Interpretive Data was last revised on 2018. Lymphocyte pct 29.0 % [facility] Comment: Interpretive Data Percent cell count reference ranges are not reported, since discordance with absolute values may lead to misinterpretation of CBC data. Current Interpretive Data was last revised on 2018. Monocyte pct 8.4 % [facility] Comment: Interpretive Data Percent cell count reference ranges are not reported, since discordance with absolute values may lead to misinterpretation of CBC data. Current Interpretive Data was last revised on 2018. Eosinophil pct 2.7 % [facility] Comment: Interpretive Data Percent cell count reference ranges are not reported, since discordance with absolute values may lead to misinterpretation of CBC data. Current Interpretive Data was last revised on 2018. Basophil pct 0.5 % [facility] Comment: Interpretive Data Percent cell count reference ranges are not reported, since discordance with absolute values may lead to misinterpretation of CBC data. Current Interpretive Data was last revised on 2018. Blood 06/05/2025 6:43 AM CDT 06/05/2025 6:56 AM CDT us Oj Hays MD LAB BLOOD ORDERABLES Final Resul t KYLEE [address] [facility] Department [place] [address] * (ABNORMAL) CBC with auto differential (06/05/2025 6:43 AM CDT) WBC 9.49 3.80 - 9.90 K/cumm Hgb 12.3 11.9 - 15.5 g/dL [facility] Hct 41.3 35.6 - 45.5 % [facility] Plt 221 150 - 400 K/cumm [facility] MPV 12.6(H) 9.1 - 12.3 fL [facility] RBC 4.45 3.90 - 5.20 M/cumm [facility] MCV 92.8 81.3 - 96.4 fL [facility] MCH 27.6 27.1 - 33.3 pg [facility] MCHC 29.8(L) 32.3 - 35.7 g/dL [facility] RDW CV 13.6 11.1 - 14.9 % [facility] RDW SD 45.9 35.7 - 48.1 fL [facility] NRBC abs 0.00 0.00 - 0.01 K/cumm [facility] Blood 06/05/2025 6:43 AM CDT 06/05/2025 6:56 AM CDT us Oj Hays MD LAB BLOOD ORDERABLES Final Resul t [facility] [address] [facility] Department [place] [address] * (ABNORMAL) Basic metabolic panel (06/05/2025 6:43 AM CDT) Sodium 143 135 - 145 mmol/L Potassium, pl 4.5 3.3 - 4.9 mmol/L [facility] Chloride 109 97 - 110 mmol/L [facility] CO2 25 22 - 32 mmol/L [facility] Anion gap 9 2 - 15 mmol/L [facility] BUN 25 6 - 25 mg/dL [facility] Creatinine 1.53(H) 0.60 - 1.10 mg/dL [facility] Glucose 89 70 - 199 mg/dL [facility] Comment: Interpretive Data Fasting glucose >/= 126 mg/dl is diagnostic for diabetes. Fasting is defined as no caloric intake for at least 8 hours. Fasting glucose between 100 mg/dl to 125 mg/dl is diagnostic of prediabetes. In a patient with classic symptoms of hyperglycemia or hyperglycemic crisis, a random glucose >/= 200 mg/dl is diagnostic for diabetes. In the absence of unequivocal hyperglycemia, results should be confirmed by repeat testing. The classification and Diagnosis of Diabetes Diabetes Care 2021; 46: S19-S40. Current interpretive data was last revised 2022. Calcium 8.6 8.5 - 10.3 mg/dL KYLEE Blood 06/05/2025 6:43 AM CDT 06/05/2025 6:56 AM CDT us Oj Hays MD LAB BLOOD ORDERABLES Final Resul t Performing Organization Address [facility] Co de Phone Number [address] [place], [place] [id number] * (ABNORMAL) Troponin T high-sensitivity 6-hour (06/04/2025 8:54 PM CDT) Trop T hs 28(H) <=14 ng/L Comment: Interpretive Data For further hscTnT resources including the diagnostic algorithm and an aid in interpretation, copy and paste this link: https://nrl.testcatalog.org/show/hsTrop Current Interpretive Data last revised 2020. Trop T hs delta See Comment ng/L KYLEE Comment:Inappropriate collec tion time to report a delta. Trop T hs pct delta See Comment % KYLEE Comment:Inappropriate collec tion time to report a delta. Trop T hs interp See Comment KYLEE Comment:Inappropriate collec tion time to report a delta. Blood 06/04/2025 8:54 PM CDT 06/04/2025 9:20 PM CDT us Sivan CHO LAB BLOOD ORDERABLES Final R esult Performing Organization Address City/[facility] Co de Phone Number [address] [place] [address] * POCT glucose (06/04/2025 8:39 PM CDT) Glucose, POC 129 70 - 199 mg/dL Glucose comment 1 RN/MD Notified KYLEE Blood 06/04/2025 8:39 PM CDT 06/04/2025 8:39 PM CDT Oj Hays MD LAB POCT ORDERABLES - DEVICE Fin al Result Performing Organization Address [facility] Co de Phone Number [address] [address] * (ABNORMAL) Troponin T high-sensitivity 4-hour (06/04/2025 5:23 PM CDT) Trop T hs 23(H) <=14 ng/L Comment: Interpretive Data For further hscTnT resources including the diagnostic algorithm and an aid in interpretation, copy and paste this link: https://nrl.testcatalog.org/show/hsTrop Current Interpretive Data last revised 2020. Trop T hs delta -1 ng/L [facility] Trop T hs interp Insignificant [facility] Blood 06/04/2025 5:23 PM CDT 06/04/2025 5:38 PM CDT us Sivan CHO LAB BLOOD ORDERABLES Final R esult Performing Organization Address [facility] Co de Phone Number [address] [address] * Sepsis Lactate w/ Reflex (06/04/2025 4:14 PM CDT) Pathologist [facility] Sepsis Lactate 0.9 0.7 - 2.0 mmol/L Blood 06/04/2025 4:14 PM CDT 06/04/2025 4:19 PM CDT Sivan CHO LAB BLOOD ORDERABLES Final R esult Performing Organization Address [facility] Co de Phone Number [address] [address] * (ABNORMAL) Blood culture Blood (06/04/2025 4:14 PM CDT) [facility] Direct Specimen Exam Molecular Analysis: Micrococcus species detected by the anna ePlex BCID-GP panel. Single positive culture may represent contamination. This test does not exclude the possibility of a mixed bacterial infection. Notification of: Micrococcus species called to and read back by: Kingsley Dillard [employer] [phone] on 06/06/2025 05:35:04 by: Fortunato Jarvis MT Test result called to and read back by [email or web address] on 06/06/2025 05:42:56 by [email or web address] Comment:Testing performed by : [facility], [address] [place]., [address] Direct Specimen Exam Stain: Gram Positive Cocci in clusters Time to culture positivity (aerobic media): 31.4 hours Notification of: Gram Positive Cocci in clusters called to and read back by: Kinsgley Dillard MLT [phone]) on 06/06/2025 03:44:51 by: Candie Rico MT Test result called to and read back by [email or web address] on 06/06/2025 03:51:22 by [email or web address] KYLEE ROMAN Comment:Testing performed by : [facility], [address] [place] [address]., [id number] Report Final Report: Micrococcus species Isolate is a possible contaminant; please notify the microbiology laboratory at [phone] if clinical features indicate the need for further workup. (.) KYLEE Comment:Testing performed by : [facility], [address] [place] [address]., [id number] Organism MICROCOCCUS SPECIES KYLEE Blood 06/04/2025 4:14 PM CDT 06/04/2025 7:48 PM CDT Narrative KYLEE - 06/10/2025 3:26 PM CDT Collection->Peripheral 1. Blood cultures are incubated for 4 days on a continuously monitored blood culture system. The first report of a negative culture is issued within 24 hours of receipt of the specimen in the laboratory. 2. Positive culture results are reported as soon as they are detected. 3. The most important factor for detection of microbes in the setting of bloodstream infection is the volume of blood submitted for culture. Failure to collect an optimal blood volume can result in false negative blood cultures. 4. For pediatric patients, the recommended blood volume to collect follows a weight based strategy. See the electronic test catalog for collection instructions. 5. For positive blood cultures, a rapid molecular test may be performed for organism identification using the anna ePlex blood culture identification panel for gram positive (BCID-GP) and gram negative (BCID-GN) organisms. This nucleic acid amplification test detects microbial DNA in positive blood culture broth. This assay has been cleared by the [place] Food and Drug Administration and its performance characteristics have been verified by the [facility] Microbiology Laboratory. For questions about this culture, contact the Microbiology Laboratory at [phone]. Interpretive data was last revised on 24. us Sivan CHO LAB MICROBIOLOGY - GENERAL O RDERABLES Final Result [facility] Department [place] [address] * CT Chest Abdomen Pelvis WO Contrast (06/04/2025 4:06 PM CDT) Anatomical Region Laterality Modality Body N/A Computed Tomogra phy 06/04/2025 4:32 PM CDT Narrative 06/04/2025 4:55 PM CDT EXAM DESCRIPTION: CT CHEST ABDOMEN PELVIS WO CONTRAST REASON FOR STUDY: pneumonia, uti generalized weakness, not eating or drinking x 3 days. 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 Walker, aox3 @ baseline. Denies GI/ symptoms. Hx: CAD, CHF, DM2, HTN, PVD Surg Hx: Cholecystectomy, Rt. Hip TECHNIQUE: CT scan of the chest, abdomen, and pelvis performed without intravenous and without oral contrast using helical scanning technique. Reconstructed coronal and sagittal MPR images reviewed. All images stored on PACS. Automated exposure control was used as a dose optimization technique for this examination. COMPARISON: 04/07/2025 FINDINGS: The sensitivity for detection of visceral lesions is diminished without the use of intravenous contrast. CHEST LUNGS: No nodules or masses. No pneumonia. PLEURA: No effusion. No pneumothorax. MEDIASTINUM/DARLEEN: No identified masses or abnormal nodes. HEART: Heart size is normal with no pericardial effusion. CORONARY ARTERY CALCIFICATION: Present VASCULATURE CHEST: No thoracic aortic aneurysm. AXILLA: No adenopathy. CHEST WALL: No masses. No subcutaneous air. HARDWARE/LINES/TUBES: None. MUSCULOSKELETAL CHEST: No significant abnormality. Incompletely visualized anterior cervical spine fusion. Multilevel degenerative change within the thoracic spine. ABDOMEN/PELVIS LIVER: Normal size. No identified cystic or solid masses. No cysts. GALLBLADDER: Surgically absent. BILE DUCTS: No intrahepatic or extrahepatic ductal dilatation. SPLEEN: Normal size. No focal lesions. Calcified granulomas. PANCREAS: No identified cystic or solid masses. No significant calcifications. No adjacent inflammation or peripancreatic fluid collections. Pancreatic duct not dilated. ADRENALS: Normal. KIDNEYS/URINARY TRACT: Multiple bilateral probable renal cysts. No stones. No hydronephrosis or hydroureter. Urinary bladder is unremarkable. GI: No dilated bowel loops. No obvious wall thickening. Normal appendix. Scattered diverticular disease without diverticulitis. Duodenal diverticulum. PERITONEUM: No ascites or free air. RETROPERITONEUM: No mass or adenopathy. REPRODUCTIVE: No significant abnormality. VASCULATURE ABDOMEN: Atherosclerotic disease in the aorta and iliacs MUSCULOSKELETAL ABDOMEN PELVIS: Multilevel degenerative changes are present without fracture. No concerning lesions are present. Right hip arthroplasty with resulting artifact. OTHER: No significant abnormality. IMPRESSION: 1. No acute finding in the chest, abdomen or pelvis. 2. Coronary artery calcification. 3. Surgical absence of the gallbladder. 4. Multiple bilateral probable renal cysts. 5. Diverticulosis. No evidence of diverticulitis. THIS IS AN ELECTRONICALLY VERIFIED FINAL REPORT 06/04/2025 4:55 PM - Electronically signed by Basil Chauhan M.D. KT T: Report ID: [id number] Reading Location: [id number] Procedure Note Basil Chauhan MD - 06/04/2025 EXAM DESCRIPTION: CT CHEST ABDOMEN PELVIS WO CONTRAST REASON FOR STUDY: pneumonia, uti generalized weakness, not eating or drinking x 3 days. Daughter is homecare care giver. Walker, aox3 @ baseline. Denies GI/ symptoms. Hx: CAD, CHF, DM2, HTN, PVD Surg Hx: Cholecystectomy, Rt. Hip TECHNIQUE: CT scan of the chest, abdomen, and pelvis performed without intravenous and without oral contrast using helical scanning technique. Reconstructed coronal and sagittal MPR images reviewed. All images storedon PACS. Automated exposure control was used as a dose optimizationtechnique for this examination. COMPARISON: 04/07/2025 FINDINGS: The sensitivity for detection of visceral lesions is diminished without the use of intravenous contrast. CHEST LUNGS: No nodules or masses. No pneumonia. PLEURA: No effusion. No pneumothorax. MEDIASTINUM/DARLEEN: No identified masses or abnormal nodes. HEART: Heart size is normal with no pericardial effusion. CORONARY ARTERY CALCIFICATION: Present VASCULATURE CHEST: No thoracic aortic aneurysm. AXILLA: No adenopathy. CHEST WALL: No masses. No subcutaneous air. HARDWARE/LINES/TUBES: None. MUSCULOSKELETAL CHEST: No significant abnormality. Incompletelyvisualized anterior cervical spine fusion. Multilevel degenerative change within the thoracic spine. ABDOMEN/PELVIS LIVER: Normal size. No identified cystic or solid masses. No cysts. GALLBLADDER: Surgically absent. BILE DUCTS: No intrahepatic or extrahepatic ductal dilatation. SPLEEN: Normal size. No focal lesions. Calcified granulomas. PANCREAS: No identified cystic or solid masses. No significant calcifications. No adjacent inflammation or peripancreatic fluidcollections. Pancreatic duct not dilated. ADRENALS: Normal. KIDNEYS/URINARY TRACT: Multiple bilateral probable renal cysts. Nostones. No hydronephrosis or hydroureter. Urinary bladder is unremarkable. GI: No dilated bowel loops. No obvious wall thickening. Normal appendix. Scattered diverticular disease without diverticulitis. Duodenaldiverticulum. PERITONEUM: No ascites or free air. RETROPERITONEUM: No mass or adenopathy. REPRODUCTIVE: No significant abnormality. VASCULATURE ABDOMEN: Atherosclerotic disease in the aorta and iliacs MUSCULOSKELETAL ABDOMEN PELVIS: Multilevel degenerative changes arepresent without fracture. No concerning lesions are present. Right hiparthroplasty with resulting artifact. OTHER: No significant abnormality. IMPRESSION: 1. No acute finding in the chest, abdomen or pelvis. 2. Coronary artery calcification. 3. Surgical absence of the gallbladder. 4. Multiple bilateral probable renal cysts. 5. Diverticulosis. No evidence of diverticulitis. THIS IS AN ELECTRONICALLY VERIFIED FINAL REPORT 06/04/2025 4:55 PM - Electronically signed by Basil Chauhan M.D. KT T: Report ID: [id number] Reading Location: [place] [address] us Sivan Gutierrez MARQUIS IMG CT PROCEDURES Final Resu lt * CT Head WO Contrast (06/04/2025 4:06 PM CDT) Anatomical Region Laterality Modality Head and Neck N/A Computed Tomogra phy 06/04/2025 4:55 PM CDT Narrative 06/04/2025 5:01 PM CDT EXAM DESCRIPTION: CT HEAD WO CONTRAST REASON FOR STUDY: weakness generalized weakness, not eating or drinking x 3 days. 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 Walker, aox3 @ baseline. Denies GI/ symptoms. Hx: CAD, CHF, DM2, HTN, PVD Surg Hx: Cholecystectomy, Rt. Hip TECHNIQUE: Axial images acquired through the brain without intravenous contrast. Images stored on PACS. Automated exposure control was used as a dose optimization technique for this examination. COMPARISON: None FINDINGS: BRAIN: No hemorrhage, edema or mass effect. No recent infarct. Generalized atrophy and periventricular microvascular white matter ischemic change. EXTRA-AXIAL SPACES: No fluid collections. No masses. CALVARIUM: No fracture. SINUSES/MASTOIDS: No fluid or mucosal thickening. ORBITS: No significant abnormality. OTHER: No other significant abnormality. IMPRESSION: No acute intracranial findings. THIS IS AN ELECTRONICALLY VERIFIED FINAL REPORT 06/04/2025 5:01 PM - Electronically signed by Basil Chauhan M.D. KT T: Report ID: [id number] Reading Location: [id number] Procedure Note Basil Chauhan MD - 06/04/2025 EXAM DESCRIPTION: CT HEAD WO CONTRAST REASON FOR STUDY: weakness generalized weakness, not eating or drinking x 3 days. Daughter is homecare care giver. Walker, aox3 @ baseline. Denies GI/ symptoms. Hx: CAD, CHF, DM2, HTN, PVD Surg Hx: Cholecystectomy, Rt. Hip TECHNIQUE: Axial images acquired through the brain without intravenous contrast. Images stored on PACS. Automated exposure control was used asa dose optimization technique for this examination. COMPARISON: None FINDINGS: BRAIN: No hemorrhage, edema or mass effect. No recent infarct. Generalized atrophy and periventricular microvascular white matterischemic change. EXTRA-AXIAL SPACES: No fluid collections. No masses. CALVARIUM: No fracture. SINUSES/MASTOIDS: No fluid or mucosal thickening. ORBITS: No significant abnormality. OTHER: No other significant abnormality. IMPRESSION: No acute intracranial findings. THIS IS AN ELECTRONICALLY VERIFIED FINAL REPORT 06/04/2025 5:01 PM - Electronically signed by Basil Chauhan M.D. KT T: Report ID: [id number] Reading Location: [id number] Sivan CHO IMG CT PROCEDURES Final Resu lt * Blood culture Blood (06/04/2025 2:54 PM CDT) Report Final Report: No growth Comment:Testing performed by : [facility], [address] [place]., [address] Blood 06/04/2025 2:54 PM CDT 06/04/2025 6:24 PM CDT Narrative [facility] - 06/09/2025 7:00 AM CDT Collection->Peripheral Received only aerobic blood culture bottle 1. Blood cultures are incubated for 4 days on a continuously monitored blood culture system. The first report of a negative culture is issued within 24 hours of receipt of the specimen in the laboratory. 2. Positive culture results are reported as soon as they are detected. 3. The most important factor for detection of microbes in the setting of bloodstream infection is the volume of blood submitted for culture. Failure to collect an optimal blood volume can result in false negative blood cultures. 4. For pediatric patients, the recommended blood volume to collect follows a weight based strategy. See the electronic test catalog for collection instructions. 5. For positive blood cultures, a rapid molecular test may be performed for organism identification using the anna ePlex blood culture identification panel for gram positive (BCID-GP) and gram negative (BCID-GN) organisms. This nucleic acid amplification test detects microbial DNA in positive blood culture broth. This assay has been cleared by the [place] Food and Drug Administration and its performance characteristics have been verified by the [facility] Microbiology Laboratory. For questions about this culture, contact the Microbiology Laboratory at [phone]. Interpretive data was last revised on 24. us Sivan CHO LAB MICROBIOLOGY - GENERAL O RDERABLES Final Result Performing Organization Address [facility] de Phone Number KYLEE ROMAN [address] [place] [address] * (ABNORMAL) Urinalysis reflex to microscopic and culture Urine (06/04/2025 1:25 PM CDT) Color, ur Yellow Yellow Clarity, ur Cloudy(A) Clear [facility] Specific gravity, ur 1.017 1.003 - 1.030 [facility] pH, urine 5.0 [facility] Comment: Interpretive Data U rine pH is affected by diet, medications, systemic acid-base disturbances, and renal tubular function. pH may affect urinary stone formation. For example, urine pH below 6.0 may help reduce the tendency for calcium phosphate stones and pH greater than 6.0 may reduce the tendency for uric acid stone formation. Source: [facility] Current Interpretive Data was last revised on 2017 Protein, ur ql Negative Negative [facility] Glucose, ur ql Negative Negative [facility] Ketones, ur Negative Negative [facility] Bilirubin, ur Negative Negative [facility] Blood, ur Negative Negative [facility] Urobilinogen, ur <2.0 <2.0 mg/dL [facility] Nitrite, ur Positive(A) Negative [facility] Leukocyte esterase, ur 4+(A) Negative [facility] UA reflex comment Reflex to microscopic UA will be performed. [facility] Urine 06/04/2025 1:25 PM CDT 06/04/2025 1:28 PM CDT us Basil Min DO LAB MICROBIOLOGY - GENERAL ORDERABLES Final Result Performing Organization Address [facility] Co de Phone Number KYLEE [address] [place] [address] * (ABNORMAL) Urinalysis, microscopic only (06/04/2025 1:25 PM CDT) WBC, ur >50(A) 0 - 5 /HPF RBC, ur 3-5(A) 0 - 2 /HPF [facility] Epithelial cells, squamous, ur 1-5 0 - 5 /HPF [facility] Bacteria, ur 3+(A) [facility] Mucous, ur Present(A) [facility] Culture Reflex Comment Reflex to urine culture will be performed. [facility] Urine 06/04/2025 1:25 PM CDT 06/04/2025 1:28 PM CDT Basil Churchill [facility] LAB URINE ORDERABLES Final Result Performing Organization Address City/[facility]/ZIP Co de Phone Number [facility] Zong [facility] [place] [address] * (ABNORMAL) Urine culture Urine (06/04/2025 1:25 PM CDT) Report Final Report: Greater than or equal to 100,000 colonies/mL of Klebsiella pneumoniae (.) Comment:Testing performed by : [facility], [address] [place] [place] [address] Organism KLEBSIELLA PNEUMONIAE [facility] Urine 06/04/2025 1:25 PM CDT 06/04/2025 6:33 PM CDT Narrative [facility] - 06/06/2025 10:28 AM CDT Urine culture reflexed based upon urinalysis results. Testing performed by [facility] Microbiology Laboratory ([phone]) Organism Antibiotic Method Susceptibility Klebsiella pneumoniae Ampicillin INTERPRETATION Resistant Klebsiella pneumoniae Cefazolin INTERPRETATION Susceptible Klebsiella pneumoniae Nitrofurantoin INTERPRETATION Susceptible Klebsiella pneumoniae Gentamicin INTERPRETATION Susceptible Klebsiella pneumoniae Trimethoprim with Sulfamethoxazole INTERPRETATION Susceptible Klebsiella pneumoniae Meropenem INTERPRETATION Susceptible Klebsiella pneumoniae Cefepime INTERPRETATION Susceptible Klebsiella pneumoniae Ciprofloxacin INTERPRETATION Susceptible Klebsiella pneumoniae Ceftazidime INTERPRETATION Susceptible Klebsiella pneumoniae Ceftriaxone INTERPRETATION Susceptible Klebsiella pneumoniae Piperacillin/Tazobactam INTERPRE TATION Susceptible Klebsiella pneumoniae Cephalexin INTERPRETATION Susceptible Klebsiella pneumoniae Cefuroxime-axetil INTERPRETATION Susceptible Klebsiella pneumoniae Cefdinir INTERPRETATION Susceptible [facility] - GENERAL ORDERABLES Final Result Performing Organization Address City/[facility]/ZIP Co de Phone Number [facility] Zong [facility] Department [place] [address] * XR Chest 1 View (06/04/2025 1:02 PM CDT) Anatomical Region Laterality Modality Body, Chest N/A Computed Radiogr aphy 06/04/2025 1:29 PM CDT Narrative 06/04/2025 1:32 PM CDT EXAM DESCRIPTION: XR CHEST 1 VIEW REASON FOR STUDY: weakness Pt BIBEMS from home for generalized weakness, not eating or drinking x 3 days. 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 Walker, aox3 @ baseline. Denies GI/ symptoms. TECHNIQUE: Single frontal portable semi upright radiographic view(s) of the chest. COMPARISON: Chest radiograph dated 04/07/[address] dated 04/07/2025. FINDINGS: The patient is rotated and tilted [id number]. Lung volumes are small with bronchovascular crowding. Patchy bibasilar opacities. No significant pleural effusion. No pneumothorax. The pulmonary nodules and other findings better assessed on prior chest CT dated 04/07/2025. The cardiomediastinal silhouette is similar in size. Degenerative changes of the imaged right shoulder. Partially imaged spinal instrumentation. IMPRESSION: Patchy bibasilar opacities, atelectasis and/or pneumonic consolidation. THIS IS AN ELECTRONICALLY VERIFIED FINAL REPORT 06/04/2025 1:32 PM - Electronically signed by Ashvin De La Cruz D.O. AP T: Report ID: [id number] Reading Location: [id number] Procedure Note Ashvin De La Cruz, DO - 06/04/2025 EXAM DESCRIPTION: XR CHEST 1 VIEW REASON FOR STUDY: weakness Pt BIBEMS from home for generalized weakness, not eating or drinking x 3days. 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 Walker, aox3 @ baseline. Denies GI/GUsymptoms. TECHNIQUE: Single frontal portable semi upright radiographic view(s) ofthe chest. COMPARISON: Chest radiograph dated 04/07/[address] dated04/07/2025. FINDINGS: The patient is rotated and tilted [id number]. Lung volumesare small with bronchovascular crowding. Patchy bibasilar opacities. No significant pleural effusion. No pneumothorax. The pulmonary nodules and other findings better assessed on prior chest CT dated 04/07/2025. The cardiomediastinal silhouette is similar in size. Degenerative changes ofthe imaged right shoulder. Partially imaged spinal instrumentation. IMPRESSION: Patchy bibasilar opacities, atelectasis and/or pneumonic consolidation. THIS IS AN ELECTRONICALLY VERIFIED FINAL REPORT 06/04/2025 1:32 PM - Electronically signed by Ashvin NAILS T: Report ID: [id number] Reading Location: [place] [address] Sivan CHO IMG XR PROCEDURES Final Resu lt * (ABNORMAL) Troponin T high-sensitivity series (baseline, 2hr, 4hr, 6hr) (06/04/2025 12:56 PM CDT) Pathologist [facility] Trop T hs 24(H) <=14 ng/L Comment: Interpretive Data For further hscTnT resources including the diagnostic algorithm and an aid in interpretation, copy and paste this link: [email or web address].testcatalog.org/show/[email or web address] Current Interpretive Data last revised 2020. Blood 06/04/2025 12:5 6 PM CDT 06/04/2025 12:58 PM CDT Sivan CHO LAB BLOOD ORDERABLES Final R esult [facility] [address] [facility] Department [place] [address] * Influenza A/B, RSV, and COVID-19 PCR Nasopharyngeal (06/04/2025 12:56 PM CDT) [facility] COVID-19 RNA Negative Negative Influenza A RNA Negative Negative KYLEE Influenza B RNA Negative Negative KYLEE RSV RNA Negative Negative KYLEE Comment: Interpretive data: Testing performed by [facility]. This test is performed using the [employer] Xpert Xpress CoV-2/Flu/RSV plus assay. This is a multiplex, real-time reverse transcriptase PCR assay intended for the qualitative detection of nucleic acid from SARS-CoV-2, influenza A, influenza B, and respiratory syncytial virus. This assay has been cleared by the [place] Food and Drug administration. The performance characteristics have been verified by the [facility]. Results must be considered in the clinical context, and a negative result does not rule out infection. Interpretive Data last revised 2023 Nasopharyngeal 06/04/2025 12 :56 PM CDT 06/04/2025 1:10 PM CDT Narrative KYLEE - 06/04/2025 1:51 PM CDT Is the Patient experiencing symptoms consistent with COVID?->Yes us Sivan CHO LAB MICROBIOLOGY - GENERAL O RDERABLES Final Result KYLEE [address] [facility] Department [place] [address] * (ABNORMAL) eGFR (06/04/2025 12:56 PM CDT) eGFR 27(L) >=60 mL/min/1. 73 m2 Comment: Interpretive Data Reference Interval Normal >/= 90 mL/min/1.73m2 Mildly decreased* 60 - 89 mL/min/1.73m2 Mildly to moderately decreased 45 - 59 mL/min/1.73m2 Moderately to severely decreased 30 - 44 mL/min/1.73m2 Severely decreased 15 - 29 mL/min/1.73m2 Kidney Failure < 15 mL/min/1.73m2 *Relative to young adult level Estimated glomerular filtration rate is determined by the 2020 CKD-EPI equation recommended by the National Kidney [employer] (A Unifying Approach to GFR Estimation: Recommendations of the NKF-ASK Task Force on Reassessing the Inclusion of Race in Diagnosing Kidney Disease, JASN 2020). The CKD-EPI equation should not be used for patients with unstable renal function and has not been validated in children and those over 70. Current interpretive data was last reviewed 2021. Blood 06/04/2025 12:5 6 PM CDT 06/04/2025 12:58 PM CDT Basil Min DO LAB BLOOD ORDERABLES Final Result KYLEE [address] [facility] Department [place] [address] * Differential, auto (06/04/2025 12:56 PM CDT) Neutrophil abs 6.18 1.50 - 6.50 K/cumm Imm gran abs 0.01 0.00 - 0.10 K/cumm [facility] Lymphocyte abs 2.53 0.80 - 3.30 K/cumm [facility] Monocyte abs 0.64 0.20 - 0.80 K/cumm [facility] Eosinophil abs 0.40 0.00 - 0.50 K/cumm [facility] Basophil abs 0.08 0.00 - 0.10 K/cumm [facility] Neutrophil pct 62.8 % [facility] Comment: Interpretive Data Percent cell count reference ranges are not reported, since discordance with absolute values may lead to misinterpretation of CBC data. Current Interpretive Data was last revised on 2018. Imm gran pct 0.1 % [facility] Comment: Interpretive Data Percent cell count reference ranges are not reported, since discordance with absolute values may lead to misinterpretation of CBC data. Current Interpretive Data was last revised on 2018. Lymphocyte pct 25.7 % [facility] Comment: Interpretive Data Percent cell count reference ranges are not reported, since discordance with absolute values may lead to misinterpretation of CBC data. Current Interpretive Data was last revised on 2018. Monocyte pct 6.5 % [facility] Comment: Interpretive Data Percent cell count reference ranges are not reported, since discordance with absolute values may lead to misinterpretation of CBC data. Current Interpretive Data was last revised on 2018. Eosinophil pct 4.1 % [facility] Comment: Interpretive Data Percent cell count reference ranges are not reported, since discordance with absolute values may lead to misinterpretation of CBC data. Current Interpretive Data was last revised on 2018. Basophil pct 0.8 % [facility] Comment: Interpretive Data Percent cell count reference ranges are not reported, since discordance with absolute values may lead to misinterpretation of CBC data. Current Interpretive Data was last revised on 2018. Blood 06/04/2025 12:5 6 PM CDT 06/04/2025 12:58 PM CDT Basil Churchill Mechelle UNGER LAB BLOOD ORDERABLES Final Result KYLEE [address] [facility] Department [place] [address] * (ABNORMAL) Pro B-type natriuretic peptide (06/04/2025 12:56 PM CDT) NT-proBNP 939(H) <=450 pg/mL Comment: Interpretive Comments: A. Dyspnea in Acute Care Setting All Ages: < 300 pg/ml, acute heart failure unlikely. < 50 yrs: 300 - 450 pg/ml, further investigation warranted. > 450 pg/ml, acute heart failure likely. 50 - 74 yrs: 300 - 900 pg/ml, further investigation warranted. > 900 pg/ml, acute heart failure likely . > or = 75 yrs: 450 - 1800 pg/ml, further investigation warranted. > 1800 pg/ml, acute heart failure likely. B. Non-acute Setting < 75 yrs < 125 pg/ml, rules out heart failure. > or = 125 pg/ml, further investigation warranted. > or = 75 yrs < 450 pg/ml, rules out heart failure. > or = 450 pg/ml, further investigation warranted. - Knowledge of each individual patient's NT-proBNP range may be more useful than using similar cut-points for every patient. Please note that marked elevations in NT-proBNP levels may be observed in state other than Left Ventricular Congestive Failure, including: acute coronary syndromes, right heart strain/failure (including pulmonary embolism and cor pulmonale), critical illness, renal failure, as well as advanced age. - References: 1. Anjel LÓPEZ et.al. Eur Heart J. 2006:27:330-337. 2. Earlene RW, Charlee AM. J. AM Suri Cardiol: Cardiovasc Imag. 2009;2: 216- 225. Interpretive Data Last Revised Date: 2018. Blood 06/04/2025 12:5 6 PM CDT 06/04/2025 12:58 PM CDT Sivan CHO LAB BLOOD ORDERABLES Final R esult Performing Organization Address City/[facility]/ZIP Co de Phone Number KYLEE [address] [address] * (ABNORMAL) CBC with auto differential (06/04/2025 12:56 PM CDT) WBC 9.84 3.80 - 9.90 K/cumm Hgb 13.2 11.9 - 15.5 g/dL [facility] Hct 43.3 35.6 - 45.5 % [facility] Plt 261 150 - 400 K/cumm [facility] MPV 12.3 9.1 - 12.3 fL [facility] RBC 4.71 3.90 - 5.20 M/cumm [facility] MCV 91.9 81.3 - 96.4 fL [facility] MCH 28.0 27.1 - 33.3 pg [facility] MCHC 30.5(L) 32.3 - 35.7 g/dL [facility] RDW CV 13.6 11.1 - 14.9 % [facility] RDW SD 46.3 35.7 - 48.1 fL [facility] NRBC abs 0.00 0.00 - 0.01 K/cumm [facility] Blood 06/04/2025 12:5 6 PM CDT 06/04/2025 12:58 PM CDT us Basil Min DO LAB BLOOD ORDERABLES Final Result Performing Organization Address City/[facility]/ZIP Co de Phone Number [address] [address] * (ABNORMAL) Magnesium (06/04/2025 12:56 PM CDT) Magnesium 2.6(H) 1.4 - 2.5 mg/dL Blood 06/04/2025 12:5 6 PM CDT 06/04/2025 12:58 PM CDT us Sivan CHO LAB BLOOD ORDERABLES Final R esult [facility] [address] [facility] Department [place] [address] * (ABNORMAL) Comprehensive metabolic panel (06/04/2025 12:56 PM CDT) Sodium 141 135 - 145 mmol/L Potassium, pl 5.0(H) 3.3 - 4.9 mmol/L [facility] Chloride 104 97 - 110 mmol/L [facility] CO2 29 22 - 32 mmol/L [facility] Anion gap 8 2 - 15 mmol/L [facility] BUN 28(H) 6 - 25 mg/dL [facility] Creatinine 1.78(H) 0.60 - 1.10 mg/dL [facility] Glucose 136 70 - 199 mg/dL [facility] Comment: Interpretive Data Fasting glucose >/= 126 mg/dl is diagnostic for diabetes. Fasting is defined as no caloric intake for at least 8 hours. Fasting glucose between 100 mg/dl to 125 mg/dl is diagnostic of prediabetes. In a patient with classic symptoms of hyperglycemia or hyperglycemic crisis, a random glucose >/= 200 mg/dl is diagnostic for diabetes. In the absence of unequivocal hyperglycemia, results should be confirmed by repeat testing. The classification and Diagnosis of Diabetes Diabetes Care 2021; 46: S19-S40. Current interpretive data was last revised 2022. Calcium 9.3 8.5 - 10.3 mg/dL [facility] Bilirubin, total 0.6 0.1 - 1.2 mg/dL [facility] Protein, pl 7.2 6.5 - 8.5 g/dL [facility] Albumin 3.6 3.5 - 5.0 g/dL [facility] Alk phos 91 40 - 130 Units/L [facility] ALT 8 7 - 45 Units/L [facility] AST 15 10 - 45 Units/L [facility] Blood 06/04/2025 12:5 6 PM CDT 06/04/2025 12:58 PM CDT us Basil Churchill Min DO LAB BLOOD ORDERABLES Final Result Performing Organization Address City/[facility]/ZIP Co de Phone Number KYLEE [address] [place] [address] * POCT glucose (06/04/2025 12:53 PM CDT) Glucose, POC 131 70 - 199 mg/dL Blood 06/04/2025 12:5 3 PM CDT 06/04/2025 12:53 PM CDT us Gracia Churchill Mechelle DO LAB POCT ORDERABLES - DEVIC E Final Result Performing Organization Address [facility] de Phone Number KYLEE [address] [place] [address] * ECG 12 lead (06/04/2025 12:33 PM CDT) Ventricular Rate EKG/Min 62 BPM [facility] Atrial Rate 62 BPM [facility] CA-Interval (MSEC) 192 ms [facility] QRS-Interval (MSEC) 126 ms [facility] QT-Interval (MSEC) 446 ms [facility] QTc 452 ms [facility] P [place] 49 degrees [facility] R [place] -17 degrees [facility] T [place] 114 degrees [facility] Diagnosis Normal sinus rhythm with sinus arrhythmia Left bundle branch block Abnormal ECG When compared with ECG of 30-JUN-2022 06:23, Premature atrial complexes are no longer Present Confirmed by MD KYM, MATIAS ([id number]) on 06/10/2025 10:29:12 AM [facility] 06/04/2025 12:3 3 PM CDT 06/10/2025 10:29 AM CDT us Gracia Zhao Chavirahu DO ECG ORDERABLES Final Resul t Performing Organization Address City/[facility] Co de Phone Number [facility] from Last 3 Months Insurance [employer] H[facility] Address: [address] [address] MEDICARE [facility] Address: [address] [address] MEDICARE [facility] Address: [address] [address] [place] [address] Advance Directives For more information, please contact: [phone] * Full Code (Latest Code Status on File) Date Activated Date Inactivated Comments 06/18/2025 10:28 PM 06/21/2025 8:16 PM * Full Code Date Activated Date Inactivated Comments 06/04/2025 8:04 PM 06/09/2025 5:56 PM * Full Code Date Activated Date Inactivated Comments 06/04/2025 5:42 PM 06/04/2025 8:04 PM * Full Code Date Activated Date Inactivated Comments 03/14/2021 8:11 PM 03/15/2021 7:39 PM Care Teams Knitting Machine Operator Relationship Specialty Start Date End Date Bandar Macias MD PCP - General Internal Medicine 06/30/22 Justin Dawn MD Consulting Physician General Surgery 03/15/21
--- OUTSIDE RECORDS SUMMARY | 2025-09-02 10:49 | XMS_ITS | Clinical Summary ---
Author Organization [facility] Address [address] [place] [address] Phone Care Team Providers Care Dampener Operator Name Role Phone Bandar Macias MD Primary Care Provider [phone] Caesar Longoria MD Unavailable [phone] Allergies Active Allergy Reactions Criticality Noted Date Comments Erythromycin Base Unknown 06/19/2023 Medications atorvastatin (LIPITOR) 20 MG Tablet Take 20 mg by mouth daily. Active carvedilol (COREG) 12.5 MG Tablet Take 12.5 mg by mouth 2 times daily. Active cephALEXin (KEFLEX) 500 MG Capsule Take 500 mg by mouth 2 times daily. Active clopidogrel (PLAVIX) 75 MG Tablet Take 75 mg by mouth daily. Active Cyanocobalamin (VITAMIN B-12) 1000 MCG Tablet Take 1,000 mcg by mouth daily. Active dicyclomine (BENTYL) 20 MG Tablet Take 20 mg by mouth every 6 hours as needed. Active donepezil (ARICEPT) 10 MG Tablet Take 10 mg by mouth nightly. Active ferrous sulfate (FeroSul) 325 (65 Fe) MG Tablet Take 325 mg by mouth daily. Active furosemide (LASIX) 40 MG Tablet Take 40 mg by mouth daily. Active isosorbide mononitrate (IMDUR) 30 MG TABLET SR 24 HR Take 30 mg by mouth every morning. Active empagliflozin (Jardiance) 25 MG Tablet Take 25 mg by mouth daily. Active potassium chloride SA (Klor-Con M20) 20 MEQ Tablet Controlled Release Take 20 mEq by mouth daily. Active metFORMIN (GLUCOPHAGE) 1000 MG Tablet Take 1,000 mg by mouth 2 times daily (with meals). Active Mirtazapine (REMERON) 7.5 MG Tablet Take 7.5 mg by mouth nightly. Active olmesartan (BENICAR) 20 MG Tablet Take 20 mg by mouth daily. Active Cyanocobalamin (Vitamin B-12 CR) 1000 MCG Tablet Controlled Release Take by mouth daily. Active albuterol 108 (90 Base) MCG/ACT Aerosol Solution take 2 Puffs by inhalation every 4 hours as needed. Active glimepiride (AMARYL) 1 MG Tablet Take 1 mg by mouth daily after breakfast. Active Social History Tobacco Use Types Packs/Day Years Used Date Smoking Tobacco: Never Smokeless Tobacco: Never Tobacco Cessation:Counseling Given: Not Answered Alcohol Use Standard Drinks/Week Comments Never 0 (1 standard drink = 0.6 oz pur e alcohol) Comments Unknown Sex and Gender Information Value Date Recorded Sex Assigned at Not on file Legal Sex Female 9:18 AM CDT Gender Identity Not on file Sexual Orientation Not on file Last Filed Vital Signs Vital Sign Reading Time Taken Comments Blood Pressure 152/70 11/05/2023 2:18 PM MECHANICAL LABORATORY TECHNICIAN Pulse 58 11/05/2023 2:18 PM MECHANICAL LABORATORY TECHNICIAN Temperature 36.3 C (97.4 F) 11/05/2023 2:18 PM MECHANICAL LABORATORY TECHNICIAN Respiratory Rate 18 11/05/2023 2:18 PM MECHANICAL LABORATORY TECHNICIAN Oxygen Saturation 100% 11/05/2023 2:18 PM MECHANICAL LABORATORY TECHNICIAN Inhaled Oxygen Concentration - - Weight 73.9 kg (163 lb) 11/05/2023 2:18 PM MECHANICAL LABORATORY TECHNICIAN Height 165.1 cm (5' 5) 11/05/2023 2:18 PM MECHANICAL LABORATORY TECHNICIAN Body Mass Index 27.12 11/05/2023 2:18 PM MECHANICAL LABORATORY TECHNICIAN Plan of Treatment Health Maintenance Due Date Last Done Comments DEXA Bone Density 1935 Hepatitis C Virus (HCV) Screening 1935 TdaP Immunization 1935 Pneumococcal Immunization (5 0+ years) (1 of 1 - PCV) 12/02/1985 Zoster Immunization (1 of 2) 12/02/1985 Respiratory Syncytial Virus (RSV) Immunization (Adult) (1 - 1-dose 75+ series) 12/02/2010 Medicare Initial AWV [id number] 09/30/2023 Influenza Immunization (#1) 2025 09/17/2023 SARS-COV-2 Immunization (4 - 2024- season) 2025 08/02/2021, 12/19/2020, 11/21/2020 Hepatitis B Immunization Aged Out No longer eligible based on patient's age to complete this topic Human Papillomavirus (HPV) Immunization Aged Out No longer eligible b ased on patient's age to complete this topic Meningococcal Immunization (ACWY) Aged Out No longer eligible b ased on patient's age to complete this topic Rotavirus Immunization Aged Out No lo nger eligible based on patient's age to complete this topic Insurance [facility] Care Teams Dampener Operator Relationship Specialty Start Date End Date Bandar Macias MD PCP - General Internal Medicine 06/14/23 Caesar Longoria MD [address] [place] [address] Consulting Physician Neurology 11/13/23
== END 2025-09-02 09:52 | disposition home or self-care (01) ==
PROVIDERS: PCP Internal Medicine; Visit Provider Physician Assistant Surgical
DX: M25.551 Pain in right hip (principal)
CPT/HCPCS: 78306; A9503